=== PATIENT | female | born 1995 | race American Indian/Alaskan Native ===

== ENCOUNTER 2016-08-09 10:43 | Emergency (ER) | payer MEDICAID ==
[2016-08-09 11:25] VITALS: BP 120/80
[2016-08-09] MEDS ORDERED: TYLENOL PO ONE (12:21)
--- NOTE | 2016-08-09 12:23 | Emergency Department Report ---
- General Chief complaint: Skin/Abscess/Foreign Body Stated complaint: POSS INFECTED NIPPLES Time Seen by Provider: 08/09/16 12:17 Source: patient Mode of arrival: Ambulatory Limitations: No Limitations - History of Present Illness Initial comments: 21-year-old patient comes in today for complaint of possible infection of her right nipple. Patient sees piercings to her nipples 8 days ago. Now she is having swelling and some mild discharge and pain in her right nipple. Patient reports she has been placing warm compresses and getting in the shower. She reports that it does drain which she is in the shower. She takes ibuprofen but is starting to make her stomach hurt. She denies any problems or concerns at this time no fever no chills no nausea no vomiting. - Related Data Previous Rx's Medication Instructions Recorded Last Taken Type Doxycycline Monohydrate 100 mg PO BID #28 capsule 07/31/15 Unknown Rx [Doxycycline Monohydrate CAP] metroNIDAZOLE [Flagyl] 500 mg PO Q12HR #14 tab 07/31/15 Unknown Rx Ibuprofen [Motrin 400 MG tab] 400 mg PO Q8H PRN #30 tablet 08/18/15 Unknown Rx Fluconazole [Diflucan] 150 mg PO QDAY #2 bottle 06/01/16 Unknown Rx metroNIDAZOLE [Flagyl] 500 mg PO Q12HR #14 tab 06/01/16 Unknown Rx Acetaminophen/Codeine 1 tab PO Q6H PRN #15 tab 08/09/16 Unknown Rx [Acetaminophen-Codeine #3 TAB] Cephalexin [Keflex] 250 mg PO Q6HR #20 capsule 08/09/16 Unknown Rx Allergies Allergy/AdvReac Type Severity Reaction Status Date / Time No Known Allergies Allergy Unverified 07/31/15 10:16 Abscess Boil HPI - HPI Chief Complaint: Skin/Abscess/Foreign Body Stated Complaint: POSS INFECTED NIPPLES Time Seen by Provider: 08/09/16 12:17 Home Medications: Previous Rx's Medication Instructions Recorded Last Taken Type Doxycycline Monohydrate 100 mg PO BID #28 capsule 07/31/15 Unknown Rx [Doxycycline Monohydrate CAP] metroNIDAZOLE [Flagyl] 500 mg PO Q12HR #14 tab 07/31/15 Unknown Rx Ibuprofen [Motrin 400 MG tab] 400 mg PO Q8H PRN #30 tablet 08/18/15 Unknown Rx Fluconazole [Diflucan] 150 mg PO QDAY #2 bottle 06/01/16 Unknown Rx metroNIDAZOLE [Flagyl] 500 mg PO Q12HR #14 tab 06/01/16 Unknown Rx Acetaminophen/Codeine 1 tab PO Q6H PRN #15 tab 08/09/16 Unknown Rx [Acetaminophen-Codeine #3 TAB] Cephalexin [Keflex] 250 mg PO Q6HR #20 capsule 08/09/16 Unknown Rx Allergies/Adverse Reactions: Allergies Allergy/AdvReac Type Severity Reaction Status Date / Time No Known Allergies Allergy Unverified 07/31/15 10:16 ED Review of Systems ROS: Stated complaint: POSS INFECTED NIPPLES Other details as noted in HPI Constitutional: no symptoms reported Skin: other (right nipple pain and discharge) ED Past Medical Hx - Past Medical History Additional medical history: scolosis. 3 cysts on right arm - Surgical History Additional Surgical History: x 1 - Social History Smoking Status: Current Every Day Smoker Substance Use Type: Marijuana - Medications Home Medications: Home Medications Medication Instructions Recorded Confirmed Last Taken Type Doxycycline Monohydrate 100 mg PO BID #28 capsule 07/31/15 Unknown Rx [Doxycycline Monohydrate CAP] metroNIDAZOLE [Flagyl] 500 mg PO Q12HR #14 tab 07/31/15 Unknown Rx Ibuprofen [Motrin 400 MG tab] 400 mg PO Q8H PRN #30 tablet 08/18/15 Unknown Rx Fluconazole [Diflucan] 150 mg PO QDAY #2 bottle 06/01/16 Unknown Rx metroNIDAZOLE [Flagyl] 500 mg PO Q12HR #14 tab 06/01/16 Unknown Rx Acetaminophen/Codeine 1 tab PO Q6H PRN #15 tab 08/09/16 Unknown Rx [Acetaminophen-Codeine #3 TAB] Cephalexin [Keflex] 250 mg PO Q6HR #20 capsule 08/09/16 Unknown Rx ED Physical Exam - General Limitations: No Limitations General appearance: alert, in no apparent distress - Neurological Exam Neurological exam: Present: alert, oriented X3 - Psychiatric Psychiatric exam: Present: normal affect, normal mood - Skin Skin exam: Present: other (right nipple has silver bar piercing the bar more midline of the right breast there is some mild drainage. Does not appear to be purulent that not to be very erythematous mild tenderness to palpate) ED Course Vital Signs 08/09/16 11:23 Temperature 98.4 F Pulse Rate 72 Respiratory 16 Rate Blood Pressure 120/80 O2 Sat by Pulse 99 Oximetry ED Medical Decision Making - Medical Decision Making Patient's been evaluated by this provider fast track. There appears to be a mild cellulitis of the right nipple. We will cover patient with antibiotics and have her follow up primary care provider. We will give Tylenol for pain management at this time. We recommended patient to ED warm compresses. In the shower cleaning the bar with alcohol 4-5 times a day as well as turned them. Patient verbalized understanding. Critical care attestation.: If time is entered above; I have spent that time in minutes in the direct care of this critically ill patient, excluding procedure time. ED Disposition Clinical Impression: Cellulitis of skin Disposition: DISCHARGED TO HOME OR SELFCARE Is pt being admited?: No Does the pt Need Aspirin: No Condition: Stable Instructions: Cellulitis (ED) Additional Instructions: Complete all antibiotics as prescribed. Use the Tylenol 3 for breakthrough pain he can use [id number] ibuprofen please eat before you take it. Follow-up with her primary care provider for further evaluation and follow-up be sure that the cellulitis is improving. If the area becomes more swollen and more redness discharge is yellowish and greenish to return to the emergency room to be reevaluated. Prescriptions: Acetaminophen/Codeine [Acetaminophen-Codeine #3 TAB] 1 tab PO Q6H PRN #15 tab PRN Reason: Pain Cephalexin [Keflex] 250 mg PO Q6HR #20 capsule Referrals: PRIMARY CARE, [Primary Care Provider] - 3-5 Days [facility] [Outside] - 3-5 Days Forms: Work/School Release Form(ED)
== END 2016-08-09 12:41 | disposition home or self-care (01) ==
LOC: ED 10:43
DX: N61.0 Mastitis without abscess (principal); F12.10 Cannabis abuse, uncomplicated; F17.200 Nicotine dependence, unspecified, uncomplicated
CPT/HCPCS: 99282

== ENCOUNTER 2016-11-02 12:55 | Emergency (ER) | payer SELFPAY ==
[2016-11-02 13:54] VITALS: BP 115/83
[2016-11-02] MEDS ORDERED: NORCO 5/325 PO ONE (16:19)
[2016-11-02] MEDS ORDERED: XYLOCAINE 1% MPF 5 mL INFILTRATI ONE (16:19)
[2016-11-02] MEDS ORDERED: ZOFRAN ODT PO ONE (16:19)
[2016-11-02] MEDS ORDERED: BOOSTRIX IM ONE (16:19)
--- NOTE | 2016-11-02 16:33 | Emergency Department Report ---
ED General Adult HPI - General Chief complaint: Urogenital-Female Stated complaint: BREAST PAIN Time Seen by Provider: 11/02/16 16:02 Source: patient Mode of arrival: Ambulatory Limitations: No Limitations - History of Present Illness Initial comments: PT states she had both nipples pierced 4 months ago. PT states her R nipple ring has been imbedded for 1 month. PT states she can not take her L nipple ring out because the balls are stuck. PT states she has noticed some clear fluid and some pus from her left nipple. MD Complaint: fb Onset/Timin -: week(s) Location: chest (alvaro nipples ) Radiation: non-radiation Severity scale (0 -10): 4 Consistency: constant Improves with: none Associated Symptoms: denies: fever/chills, nausea/vomiting Treatments Prior to Arrival: none - Related Data Previous Rx's Medication Instructions Recorded Last Taken Type Acetaminophen/Codeine [Tylenol #3] 1 tab PO Q6H PRN #12 tab 11/02/16 Unknown Rx Clindamycin [Clindamycin CAP] 300 mg PO Q8H #30 cap 11/02/16 Unknown Rx Allergies Allergy/AdvReac Type Severity Reaction Status Date / Time No Known Allergies Allergy Unverified 07/31/15 10:16 ED Review of Systems ROS: Stated complaint: BREAST PAIN Other details as noted in HPI Comment: All other systems reviewed and negative Constitutional: denies: chills, fever, malaise Gastrointestinal: denies: nausea, vomiting Skin: denies: rash, change in color ED Past Medical Hx - Past Medical History Previous Medical History?: Yes Additional medical history: scolosis. 3 cysts on right arm, Cyst on ovaries - Surgical History Past Surgical History?: Yes Additional Surgical History: x 1 - Social History Smoking Status: Current Every Day Smoker Substance Use Type: Alcohol, Marijuana - Medications Home Medications: Home Medications Medication Instructions Recorded Confirmed Last Taken Type Acetaminophen/Codeine [Tylenol #3] 1 tab PO Q6H PRN #12 tab 11/02/16 Unknown Rx Clindamycin [Clindamycin CAP] 300 mg PO Q8H #30 cap 11/02/16 Unknown Rx ED Physical Exam - General Limitations: No Limitations General appearance: alert, in no apparent distress - Head Head exam: Present: atraumatic, normocephalic - Eye Eye exam: Present: normal appearance. Absent: conjunctival injection - ENT ENT exam: Present: normal exam, mucous membranes moist, normal external ear exam - Neck Neck exam: Present: normal inspection, full ROM. Absent: lymphadenopathy - Respiratory Respiratory exam: Present: normal lung sounds bilaterally. Absent: respiratory distress - Cardiovascular Cardiovascular Exam: Present: regular rate, normal rhythm, normal heart sounds - Extremities Exam Extremities exam: Present: normal inspection, full ROM - Back Exam Back exam: Present: normal inspection, full ROM - Neurological Exam Neurological exam: Present: alert, oriented X3, normal gait - Psychiatric Psychiatric exam: Present: normal affect, normal mood - Skin Skin exam: Present: warm, dry, intact, other (L nipple with piercing, R nipple ring imbedded ) ED Course Vital Signs 11/02/16 13:50 Temperature 98.4 F Pulse Rate 68 Blood Pressure 115/83 O2 Sat by Pulse 100 Oximetry - Reevaluation(s) Reevaluation #1: 11/02/16 16:34 PT gives verbal consent to remove both nipple rings Reevaluation #2: 11/02/16 17:38 PT tolerated removal of L nipple ring well. Unable to remove R nipple ring. PT aware she will need to call her gas brazer in the am and she may need breast surgeon referral. PT verbalizes understanding. - Procedure Description Procedures done: L nipple ring grasped with hemostats. ball removed from L side or ring. Ring removed, + clear drainage noted to site. R nipple cleansed with betadine. + purulant drainage. 0.5ml lidocaine 1% used at nipple piercing site, 11 blade used to enlarge the opening. attempted to back out retained piercing. piercing not able to be removed. - Pulse Oximetry Interpretation Digit-Finger Initial Pulse Oximetry Readin Actions Taken: none ED Medical Decision Making - Differential Diagnosis fb, cellulitis Critical care attestation.: If time is entered above; I have spent that time in minutes in the direct care of this critically ill patient, excluding procedure time. ED Disposition Clinical Impression: Foreign body (FB) in soft tissue, Need for Tdap vaccination Disposition: DISCHARGED TO HOME OR SELFCARE Is pt being admited?: No Does the pt Need Aspirin: No Condition: Stable Instructions: Soft Tissue Foreign Body (ED) Additional Instructions: follow up with your [facility]ED[facility] MANAGER office tomorrow Return to the ED if swelling, redness, drainage, fever, chills or concerns No driving or ETOH after Tylenol #3 Prescriptions: Acetaminophen/Codeine [Tylenol #3] 1 tab PO Q6H PRN #12 tab PRN Reason: Pain , Severe (7-10) Clindamycin [Clindamycin CAP] 300 mg PO Q8H #30 cap Referrals: [facility] [Provider Group] - 3-5 Days [facility] [Primary Care Provider] - 3-5 Days Time of Disposition: 17:39
== END 2016-11-02 17:58 | disposition home or self-care (01) ==
LOC: ED 12:55
DX: S20.152A Superficial foreign body of breast, left breast, initial encounter (principal); S20.151A Superficial foreign body of breast, right breast, initial encounter; F17.200 Nicotine dependence, unspecified, uncomplicated; F12.10 Cannabis abuse, uncomplicated; W45.8XXA Other foreign body or object entering through skin, initial encounter; Y93.89 Activity, other specified; Y92.89 Other specified places as the place of occurrence of the external cause; Y99.8 Other external cause status
CPT/HCPCS: 90471; 90715; Q0162

== ENCOUNTER 2017-05-03 09:42 | Emergency (ER) | payer OTHER ==
[2017-05-03] MEDS ORDERED: XYLOCAINE 1% 20 mL INFILTRATI ONE ×2 (09:55→11:49)
[2017-05-03] MEDS ORDERED: NORCO 5/325 PO ONE (11:47)
[2017-05-03 12:16] VITALS: BP 136/70
[2017-05-03] MEDS ORDERED: TRIPLE ANTIBIOTIC TP ONE ×2 (12:46→12:50)
--- NOTE | 2017-05-03 13:16 | Emergency Department Report ---
ED General Adult HPI - General Chief complaint: Skin/Abscess/Foreign Body Stated complaint: NIPPLE INFECTION X 3 WEEKS Time Seen by Provider: 05/03/17 09:52 Source: patient Mode of arrival: Ambulatory Limitations: No Limitations - History of Present Illness Initial comments: Patient is a 22 y/o female who presents with right breast pain x 6 months. Patient was seen here 4 months ago for same reason with an infection. Patient states that her nipple ring is stuck inside her skin and she cannot take it out. Patient denies any drainage, swelling or rash. Patient states that when she came here 5 months ago she was put on clindamycin but the provider could not pull out the ring. Patient denies any fever or chills. Patient states that the nipple was placed in about 1 year ago. MD Complaint: breast pain Onset/Timin -: month(s) Location: chest (right breast) Severity scale (0 -10): 8 Quality: aching Consistency: intermittent Improves with: none Worsens with: movement Treatments Prior to Arrival: none - Related Data Previous Rx's Medication Instructions Recorded Last Taken Type Acetaminophen/Codeine [Tylenol #3] 1 tab PO Q6H PRN #12 tab 11/02/16 Unknown Rx Clindamycin [Clindamycin CAP] 300 mg PO Q8H #30 cap 11/02/16 Unknown Rx Acetaminophen/Codeine [Tylenol 1 tab PO Q6H PRN #15 tab 05/03/17 Unknown Rx /Codeine # 3 tab] Cephalexin [Keflex] 500 mg PO Q12HR #14 cap 05/03/17 Unknown Rx Allergies Allergy/AdvReac Type Severity Reaction Status Date / Time No Known Allergies Allergy Unverified 07/31/15 10:16 ED Review of Systems ROS: Stated complaint: NIPPLE INFECTION X 3 WEEKS Other details as noted in HPI Comment: All other systems reviewed and negative Constitutional: no symptoms reported Respiratory: no symptoms reported Gastrointestinal: denies: abdominal pain, nausea, vomiting Musculoskeletal: denies: back pain Skin: other (nipple ring stuck under skin) Neurological: denies: headache ED Past Medical Hx - Past Medical History Previous Medical History?: No Additional medical history: scolosis. 3 cysts on right arm, Cyst on ovaries - Surgical History Past Surgical History?: Yes Additional Surgical History: x 1 - Social History Smoking Status: Current Every Day Smoker Substance Use Type: Alcohol - Medications Home Medications: Home Medications Medication Instructions Recorded Confirmed Last Taken Type Acetaminophen/Codeine [Tylenol #3] 1 tab PO Q6H PRN #12 tab 11/02/16 Unknown Rx Clindamycin [Clindamycin CAP] 300 mg PO Q8H #30 cap 11/02/16 Unknown Rx Acetaminophen/Codeine [Tylenol 1 tab PO Q6H PRN #15 tab 05/03/17 Unknown Rx /Codeine # 3 tab] Cephalexin [Keflex] 500 mg PO Q12HR #14 cap 05/03/17 Unknown Rx ED Physical Exam - General Limitations: No Limitations General appearance: alert, in no apparent distress - Head Head exam: Present: normal inspection - Eye Eye exam: Present: normal appearance - Extremities Exam Extremities exam: Present: normal inspection, full ROM. Absent: tenderness - Back Exam Back exam: Present: normal inspection, full ROM. Absent: tenderness - Neurological Exam Neurological exam: Present: alert, oriented X3 - Skin Skin exam: Present: other (there was a nipple ring in the right nippl with one end exposed and the other end inside the subcutanoes tissue. ) ED Course Vital Signs 05/03/17 09:47 Temperature 98.4 F Pulse Rate 79 Respiratory 16 Rate Blood Pressure 136/70 O2 Sat by Pulse 100 Oximetry - Procedure Description Procedures done: ther right nipple was cleaned with betadine. 1 cm incision was made adjacent to the nipple ring to remove the ring. the subcutanous tissue around the inner ring was scraped off with an 11 blade which freed the nipple ring. the ring was pulled out and there was no attached tissue or skin. - Laceration /Wound Repair Right Breast Wound Location: chest (right breast nipple) Wound Length (cm): 1 Wound's Depth, Shape: superficial Wound Explored: foreign body removed Betadine Prep?: Yes Anesthesia: 1% Lidocaine Volume Anesthetic (ccs): 2 Wound Repaired With: sutures Suture Size/Type: 5:0, proline, nylon Number of Sutures: 2 Layer Closure?: No Progress: 1 cm incision was made to remove the nipple ring. laceration repair was made with 2 prolene suture after the nipple ring was removed. ED Medical Decision Making - Medical Decision Making patient was in NAD, the nipple ring was removed from the right nipple after the area cleaned with betadine, anaesthetized with lidocane. a 1 cm incision was made and the ring was successfully removed. the incision was repaired and patient was prescribed keflex. patient was told to return to the ER in 7 days for suture removal. - Differential Diagnosis foreign body, cellulitis, abscess Critical care attestation.: If time is entered above; I have spent that time in minutes in the direct care of this critically ill patient, excluding procedure time. ED Disposition Clinical Impression: Foreign body of breast, right, superficial Qualifiers: Encounter type: initial encounter Qualified Code(s): S20.151A - Superficial foreign body of breast, right breast, initial encounter Disposition: TO HOME OR SELFCARE Is pt being admited?: No Does the pt Need Aspirin: No Condition: Good Instructions: Suture Care (ED), Laceration (ED) Additional Instructions: take keflex 500mg twice a day for 7 days. Return to the ER in 7 days for suture removal. clean daily with soap and water and apply neosporin. Return to the ER for any signs of infection like swelling, redness, fever or drainage. Prescriptions: Acetaminophen/Codeine [Tylenol /Codeine # 3 tab] 1 tab PO Q6H PRN #15 tab PRN Reason: pain Cephalexin [Keflex] 500 mg PO Q12HR #14 cap Referrals: [facility] [Outside] - 3-5 Days Time of Disposition: 13:16
== END 2017-05-03 13:29 | disposition home or self-care (01) ==
LOC: ED 09:42
DX: S20.151A Superficial foreign body of breast, right breast, initial encounter (principal); F17.200 Nicotine dependence, unspecified, uncomplicated; X58.XXXA Exposure to other specified factors, initial encounter; Y93.9 Activity, unspecified; Y99.9 Unspecified external cause status; Y92.9 Unspecified place or not applicable
CPT/HCPCS: 99282; A6250

== ENCOUNTER 2017-08-14 07:51 | Emergency (ER) | payer SELFPAY ==
[2017-08-14 08:33] VITALS: BP 120/64
[2017-08-14 09:21] LABS: Basophils % (Auto) 0.3 % (0.0-1.8); Eosinophils # (Auto) 0.1 K/mm3 (0.0-0.4); Eosinophils % (Auto) 2.1 % (0.0-4.3); Hematocrit 38.5 % (30.3-42.9); Hemoglobin 12.4 gm/dl (10.1-14.3); Lymphocytes % (Auto) 38.9 % (13.4-35.0); Mean Corpuscular HGB Conc 32 % (30-34); Mean Corpuscular Hemoglobin 26 pg (28-32); Mean Corpuscular Volume 81 fl (79-97); Monocytes # (Auto) 0.6 K/mm3 (0.0-0.8); Monocytes % (Auto) 11.2 % (0.0-7.3); Platelet Count 231 K/mm3 (140-440); Red Blood Count 4.75 M/mm3 (3.65-5.03); Red Cell Distribution Width 13.5 % (13.2-15.2)
[2017-08-14 09:38] LABS: Alanine Aminotransferase 10 units/L (7-56); Albumin 4.1 g/dL (3.9-5); BUN/Creatinine Ratio 14; Blood Urea Nitrogen 7 mg/dL (7-17); Calcium 8.9 mg/dL (8.4-10.2); Hemolysis Index 6; Lipase 23 units/L (13-60)
[2017-08-14 10:23] LABS: Bacteria,Urine 1+ /HPF (Negative); Bilirubin,Urine NEG (Negative); Blood,Urine NEG (Negative); Color,Urine Yellow (Yellow); Mucus,Urine FEW /HPF; Nitrite,Urine NEG (Negative); Protein,Urine <15 mg/dL mg/dL (Negative); Urobilinogen,Urine < 2.0 mg/dL (<2.0)
== END 2017-08-14 22:15 | disposition left against medical advice (07) ==
LOC: ED 07:51
DX: R10.9 Unspecified abdominal pain (principal); Z53.21 Procedure and treatment not carried out due to patient leaving prior to being seen by health care provider
CPT/HCPCS: 36415; 80053; 81001; 83690; 84702; 85025

== ENCOUNTER 2017-08-16 10:50 | Emergency (ER) | payer SELFPAY ==
[2017-08-16 11:28] VITALS: BP 120/37
--- NOTE | 2017-08-16 13:17 | Emergency Department Report ---
ED Recheck HPI - General Chief Complaint: Medical Clearance Stated Complaint: CHECK HCG LEVELS Time Seen by Provider: 08/16/17 12:47 Source: patient, family Mode of arrival: Ambulatory Limitations: No Limitations - History of Present Illness Initial Comments: Patient reports that she was at [facility] on Tuesday which was the . She said she was there because she was having abdominal cramping and and they did ultrasound and lab work on her sheet that she is and they told her to return for repeat hCG level. She denies any abdominal pain. Denies any urinary burning frequency or urgency. Denies any vaginal bleeding or discharge. Denies any back pain. Pain is 0-10. She brought paperwork with her with ultrasound which showed that they were not able to see IUP due to early gestational sac. pole and you'll sac or not seen. No subchorionic hemorrhage is seen. Cervix is closed. She had wet prep, gonorrhea and chlamydia, urinalysis, CMP done. She was given OB physician to follow-up with in Dr. Janeen Fung crossed the patient is here requesting to be referred to [facility] clinic. She was also instructed to exercise pelvic rest. 1 dictated serum hCG on 08/14/2017 was 2679.6. Complaint: other (here for recheck on labs) Initial Visit For: other (abdominal pain and at [facility]) Returns Today for: other (here for recheck hormone) Symptoms Since Prior Visit: no new symptoms Context: planned re-check Associated Symptoms: none Treatments Prior to Arrival: other (told to follow up with [facility]) - Related Data Previous Rx's Medication Instructions Recorded Last Taken Type Acetaminophen/Codeine [Tylenol #3] 1 tab PO Q6H PRN #12 tab 11/02/16 Unknown Rx Clindamycin [Clindamycin CAP] 300 mg PO Q8H #30 cap 11/02/16 Unknown Rx Acetaminophen/Codeine [Tylenol 1 tab PO Q6H PRN #15 tab 05/03/17 Unknown Rx /Codeine # 3 tab] Cephalexin [Keflex] 500 mg PO Q12HR #14 cap 05/03/17 Unknown Rx Allergies Allergy/AdvReac Type Severity Reaction Status Date / Time No Known Allergies Allergy Unverified 07/31/15 10:16 ED Review of Systems ROS: Stated complaint: CHECK HCG LEVELS Other details as noted in HPI Comment: All other systems reviewed and negative Constitutional: no symptoms reported Respiratory: no symptoms reported Cardiovascular: denies: chest pain, palpitations, dyspnea on exertion, edema, syncope, paroxysmal nocturnal dyspnea Gastrointestinal: denies: abdominal pain, nausea, vomiting, diarrhea, constipation, hematemesis, melena, hematochezia Genitourinary: denies: urgency, dysuria, frequency, hematuria, discharge Musculoskeletal: denies: back pain, joint swelling, arthralgia, myalgia Skin: denies: rash Neurological: denies: headache ED Past Medical Hx - Past Medical History Previous Medical History?: Yes Additional medical history: scolosis. 3 cysts on right arm, Cyst on ovaries, Miscarriage - Surgical History Past Surgical History?: Yes Additional Surgical History: x 1 - Family History Family history: no significant - Social History Smoking Status: Never Smoker Substance Use Type: None - Medications Home Medications: Home Medications Medication Instructions Recorded Confirmed Last Taken Type Acetaminophen/Codeine [Tylenol #3] 1 tab PO Q6H PRN #12 tab 11/02/16 Unknown Rx Clindamycin [Clindamycin CAP] 300 mg PO Q8H #30 cap 11/02/16 Unknown Rx Acetaminophen/Codeine [Tylenol 1 tab PO Q6H PRN #15 tab 05/03/17 Unknown Rx /Codeine # 3 tab] Cephalexin [Keflex] 500 mg PO Q12HR #14 cap 05/03/17 Unknown Rx ED Physical Exam - General Limitations: No Limitations General appearance: alert, in no apparent distress - Head Head exam: Present: atraumatic, normocephalic, normal inspection - Eye Eye exam: Present: normal appearance, PERRL, EOMI Pupils: Present: normal accommodation - ENT ENT exam: Present: normal exam, normal orophraynx, mucous membranes moist - Neck Neck exam: Present: normal inspection, full ROM. Absent: tenderness, meningismus, lymphadenopathy, thyromegaly - Respiratory Respiratory exam: Present: normal lung sounds bilaterally. Absent: respiratory distress, chest wall tenderness, accessory muscle use - Cardiovascular Cardiovascular Exam: Present: regular rate, normal rhythm, normal heart sounds. Absent: systolic murmur, diastolic murmur - GI/Abdominal GI/Abdominal exam: Present: soft, normal bowel sounds. Absent: distended, tenderness, guarding, rebound, rigid, organomegaly, mass, bruit, pulsatile mass , hernia - Extremities Exam Extremities exam: Present: normal inspection, full ROM, normal capillary refill , other (no clubbing, cyanosis or edema. +2 pulses all extremities). Absent: tenderness, pedal edema, joint swelling, calf tenderness - Back Exam Back exam: Present: normal inspection, full ROM. Absent: tenderness - Neurological Exam Neurological exam: Present: alert, oriented X3, normal gait - Psychiatric Psychiatric exam: Present: normal affect, normal mood - Skin Skin exam: Present: warm, dry, intact, normal color. Absent: rash ED Course Vital Signs 08/16/17 11:25 Temperature 98.5 F Pulse Rate 86 Respiratory 18 Rate Blood Pressure 120/37 O2 Sat by Pulse 100 Oximetry - Reevaluation(s) Reevaluation #1: 08/16/17 14:02 Patient stable throughout ED course. Serum hCG today is 6179 and serum hCG 2 days ago was 2679.6. Patient is stable ED Recheck MDM - Medical Decision Making ED course: She was seen at [facility] 2 days ago and was told to have serum hCG rechecked today. She said she is requested to be referred to OB/ [facility] even though she was first one 2 days ago. I told her I'll refer her to my [facility] which is the [facility] doctor that some call for today and also some [facility]. Patient and serum quantitative hCG is 61,179 today and on 08/14/2017 it was 2679.6. Her hormone level are increase then and she is asymptomatic. She had ultrasound and multiple lab work to include vaginal cultures done 2 days ago at [place]. I discussed patient her hormone level and gave her a copy of the lab work. I discussed with her that she needs to call [facility] and schedule an appointment for care. I also discussed with her that she needs to take vitamin. LMP 06/28/2017. He was sinus on the discharge instruction and treatment plan and discharged home with her family from ED in stable condition Critical care attestation.: If time is entered above; I have spent that time in minutes in the direct care of this critically ill patient, excluding procedure time. ED Disposition Clinical Impression: Encounter for laboratory test, at early stage Disposition: -01 TO HOME OR SELFCARE Is pt being admited?: No Does the pt Need Aspirin: No Condition: Stable Instructions: (ED) Additional Instructions: The schedule appointment with [facility] that you were referred to. Call tomorrow to schedule an appointment If you develop abdominal pain and/or vaginal bleeding, please return to the emergency room. Your hormone level is increased and which is normal in . Start taking vitamin Increase her fluid intake Referrals: CARLY HAYNES MD [Staff Physician] - 2-3 Days (My [facility]) [facility] [Outside] - 2-3 Days Forms: Work/School Release Form(ED)
== END 2017-08-16 14:26 | disposition home or self-care (01) ==
LOC: ED 10:50
DX: O26.891 Other specified pregnancy related conditions, first trimester (principal); Z3A.01 Less than 8 weeks gestation of pregnancy
CPT/HCPCS: 36415; 84702; 99283

== ENCOUNTER 2017-11-20 10:01 | Emergency (ER) | payer MEDICAID ==
[2017-11-20 10:13] VITALS: BP 111/51
--- NOTE | 2017-11-20 10:45 | Emergency Department Report ---
ED Headache HPI - General Chief Complaint: Headache Stated Complaint: HEAD/RIGHT SIDE PAIN Time Seen by Provider: 11/20/17 10:23 Source: patient - History of Present Illness Initial Comments: Patient is 22 years old female, 18 weeks . Patient presented to the ER complaining of headache for the last 5 days associated with sinus pressure and nasal discharge especially in the morning. Patient denied any fever, nausea vomiting. Patient stated that her baby is moving well was no Demetrio denied any vaginal bleeding or vaginal discharge. Patient stated that her blood pressure is well-controlled in this . Timing/Duration: 1 week Quality: mild Head Injury Location: frontal Recent Head Trauma: no recent headache/trauma Modifying Factors: worse with: cold therapy, exposure to light, immobilization, medication, movement, rest, other Associated Symptoms: nasal congestion, nasal drainage, sinus infection. denies : denies symptoms, confusion, fatigue, facial pain, fever/chills, flushing, loss of consciousness, nausea/vomiting, numbness in legs/feet, rash, seizures, stiff neck, vision changes, weakness, other Allergies/Adverse Reactions: Allergies No Known Allergies Allergy (Unverified 07/31/15 10:16) Home Medications: Ambulatory Orders Acetaminophen/Codeine [Tylenol #3] 1 tab PO Q6H PRN #12 tab 11/02/16 Clindamycin [Clindamycin CAP] 300 mg PO Q8H #30 cap 11/02/16 Acetaminophen/Codeine [Tylenol /Codeine # 3 tab] 1 tab PO Q6H PRN #15 tab Cephalexin [Keflex] 500 mg PO Q12HR #14 cap 05/03/17 ED Review of Systems ROS: Stated complaint: HEAD/RIGHT SIDE PAIN Other details as noted in HPI Comment: All other systems reviewed and negative Constitutional: denies: chills, fever Respiratory: denies: cough, orthopnea, shortness of breath, SOB with exertion, SOB at rest Cardiovascular: denies: chest pain, palpitations Gastrointestinal: denies: abdominal pain, nausea, vomiting ED Past Medical Hx - Past Medical History Previous Medical History?: Yes Additional medical history: scolosis. 3 cysts on right arm, Cyst on ovaries, Miscarriage - Surgical History Past Surgical History?: Yes Additional Surgical History: x 1 - Social History Smoking Status: Former Smoker Substance Use Type: Alcohol, Prescribed - Medications Home Medications: Home Medications Medication Instructions Recorded Confirmed Last Taken Type Acetaminophen/Codeine [Tylenol #3] 1 tab PO Q6H PRN #12 tab 11/02/16 Unknown Rx Clindamycin [Clindamycin CAP] 300 mg PO Q8H #30 cap 11/02/16 Unknown Rx Acetaminophen/Codeine [Tylenol 1 tab PO Q6H PRN #15 tab 05/03/17 Unknown Rx /Codeine # 3 tab] Cephalexin [Keflex] 500 mg PO Q12HR #14 cap 05/03/17 Unknown Rx ED Physical Exam - General Limitations: No Limitations General appearance: alert, in no apparent distress, appears intoxicated - Head Head exam: Present: atraumatic, normocephalic, normal inspection - ENT ENT exam: Present: normal exam, normal orophraynx, mucous membranes dry, other ( ethmoid and maxillary sinus tenderness) - Neck Neck exam: Present: normal inspection, full ROM. Absent: tenderness, meningismus, lymphadenopathy, thyromegaly - Respiratory Respiratory exam: Present: normal lung sounds bilaterally. Absent: respiratory distress, wheezes, rales, rhonchi, stridor, chest wall tenderness, accessory muscle use, decreased breath sounds, prolonged expiratory - Cardiovascular Cardiovascular Exam: Present: regular rate, normal rhythm, normal heart sounds - GI/Abdominal GI/Abdominal exam: Present: soft, normal bowel sounds. Absent: distended, tenderness, guarding, rebound, rigid, organomegaly, mass, bruit, pulsatile mass , hernia - Extremities Exam Extremities exam: Present: normal inspection, full ROM, normal capillary refill - Back Exam Back exam: Present: normal inspection, full ROM. Absent: tenderness, CVA tenderness (R) - Neurological Exam Neurological exam: Present: alert, CN II-XII intact. Absent: altered, oriented X3, normal gait - Skin Skin exam: Present: warm, intact, normal color ED Course Vital Signs 11/20/17 10:08 Temperature 98.9 F Pulse Rate 87 Respiratory 16 Rate Blood Pressure 111/51 O2 Sat by Pulse 100 Oximetry Critical care attestation.: If time is entered above; I have spent that time in minutes in the direct care of this critically ill patient, excluding procedure time. ED Disposition Clinical Impression: Headache, Sinusitis Disposition: - TO HOME OR SELFCARE Is pt being admited?: No Condition: Stable Instructions: Sinusitis (ED), Acute Headache (ED)
== END 2017-11-20 10:49 | disposition home or self-care (01) ==
LOC: ED 10:01
DX: O99.512 Diseases of the respiratory system complicating pregnancy, second trimester (principal); J01.90 Acute sinusitis, unspecified; Z3A.18 18 weeks gestation of pregnancy; Z87.891 Personal history of nicotine dependence
CPT/HCPCS: 99282

== ENCOUNTER 2017-12-13 16:30 | Outpatient (CLI) | payer MEDICAID ==
[2017-12-13 17:28] VITALS: BP 116/60
[2017-12-13] MEDS ORDERED: LACTATED RINGERS 500 ML IV ONE (17:50)
[2017-12-13 18:28] LABS: Bilirubin,Urine NEG (Negative); Blood,Urine NEG (Negative); Color,Urine Yellow (Yellow); Mucus,Urine FEW /HPF; Protein,Urine <15 mg/dL mg/dL (Negative); Urobilinogen,Urine < 2.0 mg/dL (<2.0); WBC,Urine < 1.0 /HPF (0.0-6.0)
== END 2017-12-13 19:15 | disposition home or self-care (01) ==
LOC: TRG 16:30
PROVIDERS: ATTEND Obstetrics & Gynecology
DX: O26.892 Other specified pregnancy related conditions, second trimester (principal); Z3A.22 22 weeks gestation of pregnancy
CPT/HCPCS: 59025; 81001

== ENCOUNTER 2018-08-08 19:01 | Emergency (ER) | payer MEDICAID, OTHER ==
[2018-08-08 19:21] VITALS: BP 113/77
[2018-08-08 19:58] LABS: Basophils % (Auto) 0.2 % (0.0-1.8); Eosinophils # (Auto) 0.1 K/mm3 (0.0-0.4); Eosinophils % (Auto) 1.9 % (0.0-4.3); Hematocrit 38.8 % (30.3-42.9); Hemoglobin 12.3 gm/dl (10.1-14.3); Lymphocytes % (Auto) 39.5 % (13.4-35.0); Mean Corpuscular HGB Conc 32 % (30-34); Mean Corpuscular Volume 77 fl (79-97); Monocytes # (Auto) 0.6 K/mm3 (0.0-0.8); Monocytes % (Auto) 11.2 % (0.0-7.3); Platelet Count 306 K/mm3 (140-440); Red Blood Count 5.06 M/mm3 (3.65-5.03); Red Cell Distribution Width 15.8 % (13.2-15.2)
[2018-08-08 20:16] LABS: BUN/Creatinine Ratio 13; Blood Urea Nitrogen 8 mg/dL (7-17); Calcium 8.8 mg/dL (8.4-10.2)
[2018-08-08 20:17] LABS: Alanine Aminotransferase 20 units/L (7-56); Albumin 4.4 g/dL (3.9-5); Hemolysis Index 12
[2018-08-08 20:22] LABS: Bilirubin,Urine NEG (Negative); Blood,Urine LG (Negative); Color,Urine Yellow (Yellow); HCG Qualitative,Urine Negative (Negative); Mucus,Urine FEW /HPF; Protein,Urine <15 mg/dL mg/dL (Negative); RBC,Urine < 1.0 /HPF (0.0-6.0); Urobilinogen,Urine < 2.0 mg/dL (<2.0)
--- NOTE | 2018-08-08 20:40 | Emergency Department Report ---
ED Female HPI - General Chief complaint: Abdominal Pain Stated complaint: SIDE PAIN/CANT URINATE Time Seen by Provider: 08/08/18 19:46 Source: patient Mode of arrival: Ambulatory Limitations: No Limitations - History of Present Illness Initial comments: 23 0 -[place] female comes in complaining of right upper abdominal pain that's been going on since April. Patient reports since Tuesday more frequently. Patient also complains of urinary frequency and urinary urgency. Patient reports that her last menstrual period to start it was 04/10/2018 and has not stopped since she delivered her baby in March. Patient put she was seen by [facility] and was placed on Deprol after having a child. Patient reports that her Deprol follow-up is due now but she does not want to have Depo again. Patient reports that she is not considering any control prevention. Patient reports that she has not really sexually active. Patient reports she is not sure if she is having any vaginal discharge since she has been bleeding since March. Patient has only taken Tylenol if his ibuprofen gonsales her stomach. Patient denies any past medical history reports he takes no medications on a daily basis and has no known drug allergies. Patient does have a history of right ovarian cyst. Patient does not have a primary care provider or [facility] provider. -: month(s) (4) Location: other Severity: moderate Severity scale (0 -10): 6 (right side) Quality: aching Consistency: intermittent Improves with: none Worsens with: none Are you Now?: No Last Menstrual Period: 04/10/18 EDC: 01/15/19 Associated Symptoms: vaginal bleeding, abdominal pain - Related Data Sexually active: No Previous Rx's Medication Instructions Recorded Last Taken Type Acetaminophen/Codeine [Tylenol #3] 1 tab PO Q6H PRN #12 tab 11/02/16 Unknown Rx Clindamycin [Clindamycin CAP] 300 mg PO Q8H #30 cap 11/02/16 Unknown Rx Acetaminophen/Codeine [Tylenol 1 tab PO Q6H PRN #15 tab 05/03/17 Unknown Rx /Codeine # 3 tab] cephALEXin [Keflex] 500 mg PO Q12HR #14 cap 05/03/17 Unknown Rx Amoxicillin [Amoxicillin TAB] 875 mg PO BID #14 tablet 11/20/17 Unknown Rx Fluticasone [Flonase] 1 spray NS QDAY #1 bottle 11/20/17 Unknown Rx medroxyPROGESTERone ACETATE 10 mg PO QDAY #10 tablet 08/08/18 Unknown Rx [Provera] metroNIDAZOLE [Flagyl] 500 mg PO Q8HR #21 tab 08/08/18 Unknown Rx Allergies Allergy/AdvReac Type Severity Reaction Status Date / Time No Known Allergies Allergy Unverified 07/31/15 10:16 ED Review of Systems ROS: Stated complaint: SIDE PAIN/CANT URINATE Other details as noted in HPI Comment: All other systems reviewed and negative Gastrointestinal: abdominal pain (intermittent right sided abdominal pain) Genitourinary: urgency, frequency, other (vaginal bleeding) Musculoskeletal: denies: back pain, joint swelling, arthralgia Skin: denies: rash, lesions Neurological: denies: headache, weakness, paresthesias Psychiatric: denies: anxiety, depression Hematological/Lymphatic: denies: easy bleeding, easy bruising ED Past Medical Hx - Past Medical History Previous Medical History?: Yes Hx Hypertension: No Hx Diabetes: No Hx Deep Vein Thrombosis: No Hx Renal Disease: No Hx Sickle Cell Disease: No Hx Seizures: No Hx Asthma: No Hx HIV: No Additional medical history: scoliosis. 3 cysts on right arm, Cyst on ovaries, Miscarriage - Surgical History Past Surgical History?: Yes Additional Surgical History: x 1 - Social History Smoking Status: Current Every Day Smoker Substance Use Type: None - Medications Home Medications: Home Medications Medication Instructions Recorded Confirmed Last Taken Type Acetaminophen/Codeine [Tylenol #3] 1 tab PO Q6H PRN #12 tab 11/02/16 Unknown Rx Clindamycin [Clindamycin CAP] 300 mg PO Q8H #30 cap 11/02/16 Unknown Rx Acetaminophen/Codeine [Tylenol 1 tab PO Q6H PRN #15 tab 05/03/17 Unknown Rx /Codeine # 3 tab] cephALEXin [Keflex] 500 mg PO Q12HR #14 cap 05/03/17 Unknown Rx Amoxicillin [Amoxicillin TAB] 875 mg PO BID #14 tablet 11/20/17 Unknown Rx Fluticasone [Flonase] 1 spray NS QDAY #1 bottle 11/20/17 Unknown Rx medroxyPROGESTERone ACETATE 10 mg PO QDAY #10 tablet 08/08/18 Unknown Rx [Provera] metroNIDAZOLE [Flagyl] 500 mg PO Q8HR #21 tab 08/08/18 Unknown Rx ED Physical Exam - General Limitations: No Limitations General appearance: alert, in no apparent distress - Head Head exam: Present: atraumatic, normocephalic - Eye Eye exam: Present: EOMI - ENT ENT exam: Present: mucous membranes moist - Neck Neck exam: Present: normal inspection - Respiratory Respiratory exam: Present: normal lung sounds bilaterally. Absent: respiratory distress - Cardiovascular Cardiovascular Exam: Present: regular rate, normal rhythm. Absent: systolic murmur, diastolic murmur, rubs, gallop - GI/Abdominal GI/Abdominal exam: Present: soft, normal bowel sounds. Absent: distended, tenderness - External exam: Present: normal external exam Speculum exam: Present: vaginal bleeding Bi-manual exam: Present: normal bi-manual exam - Extremities Exam Extremities exam: Present: full ROM - Back Exam Back exam: Present: normal inspection - Neurological Exam Neurological exam: Present: alert, oriented X3 - Psychiatric Psychiatric exam: Present: normal affect, normal mood - Skin Skin exam: Present: warm, dry, intact, normal color. Absent: rash ED Course Vital Signs 08/08/18 19:17 Temperature 98.9 F Pulse Rate 86 Respiratory 18 Rate Blood Pressure 113/77 O2 Sat by Pulse 98 Oximetry ED Medical Decision Making - Lab Data Result diagrams: 08/08/18 19:39 08/08/18 19:39 - Medical Decision Making Patient has been evaluated by this provider in fast track. Patient has no abdominal pain at this moment no tenderness on examination Patient complains of urinary frequency and urgency but urinalysis is negative for any infections. He got a chlamydia and gonorrhea test was treated her presumptively for chlamydia. Patient be treated for bacterial vaginosis with Flagyl and Provera for menometrorrhagia. Critical care attestation.: If time is entered above; I have spent that time in minutes in the direct care of this critically ill patient, excluding procedure time. ED Disposition Clinical Impression: Bacterial vaginosis, Menometrorrhagia Disposition: - TO HOME OR SELFCARE Is pt being admited?: No Does the pt Need Aspirin: No Condition: Stable Instructions: Abdominal Pain (ED), Bacterial Vaginosis (ED), Menorrhagia (ED) Additional Instructions: Please take Provera once a day for 10 days. It's very important for you to follow up with [facility] I have listed several below for your convenience. Please complete her antibiotics for your bacterial vaginosis infection. Please incre ase her water intake. You can take Tylenol for pain. Prescriptions: medroxyPROGESTERone ACETATE [Provera] 10 mg PO QDAY #10 tablet metroNIDAZOLE [Flagyl] 500 mg PO Q8HR #21 tab Referrals: EARNEST MAYEN MD [Primary Care Provider] - 3-5 Days Forms: STI Treatment and Prevention, Work/School Release Form(ED)
[2018-08-08] MEDS ORDERED: ZITHROMAX PO ONE (21:49)
== END 2018-08-08 22:33 | disposition home or self-care (01) ==
LOC: ED 19:01
DX: N76.0 Acute vaginitis (principal); N92.1 Excessive and frequent menstruation with irregular cycle; F17.200 Nicotine dependence, unspecified, uncomplicated
CPT/HCPCS: 36415; 80053; 81001; 81025; 85025; 87210; 87591; 99284

== ENCOUNTER 2019-02-06 09:01 | Emergency (ER) | payer SELFPAY ==
[2019-02-06 09:25] VITALS: BP 112/55
--- NOTE | 2019-02-06 10:16 | Emergency Department Report ---
ED ENT HPI - General Chief complaint: Earache Stated complaint: EAR PAIN Time Seen by Provider: 02/06/19 09:59 Source: patient Mode of arrival: Ambulatory Limitations: No Limitations - History of Present Illness Initial comments: This is a 23-year-old female presents complaining of right side greater than left ear. Sometimes 2-3 days. Patient states be canal she had some dental pain which took some Tylenol without some Tylenol it resolved. Patient denies any for the ear or trauma to the ears. She denies hearing loss. He describes been a throbbing aching in nature spell and bilateral ears. She denies discharge from the ear, fever, nausea vomiting or any other problems. MD complaint: ear pain - Related Data Previous Rx's Medication Instructions Recorded Last Taken Type Acetaminophen/Codeine [Tylenol #3] 1 tab PO Q6H PRN #12 tab 11/02/16 Unknown Rx Clindamycin [Clindamycin CAP] 300 mg PO Q8H #30 cap 11/02/16 Unknown Rx cephALEXin [Keflex] 500 mg PO Q12HR #14 cap 05/03/17 Unknown Rx Fluticasone [Flonase] 1 spray NS QDAY #1 bottle 11/20/17 Unknown Rx medroxyPROGESTERone ACETATE 10 mg PO QDAY #10 tablet 08/08/18 Unknown Rx [Provera] metroNIDAZOLE [Flagyl] 500 mg PO Q8HR #21 tab 08/08/18 Unknown Rx Acetaminophen/Codeine [Tylenol 1 tab PO Q6H PRN #10 tab 02/06/19 Unknown Rx /Codeine # 3 tab] Amoxicillin [Amoxicillin TAB] 875 mg PO BID #14 tablet 02/06/19 Unknown Rx Allergies Allergy/AdvReac Type Severity Reaction Status Date / Time No Known Allergies Allergy Verified 02/06/19 09:12 ED Dental HPI - General Chief complaint: Earache Stated complaint: EAR PAIN Time Seen by Provider: 02/06/19 09:59 Source: patient Mode of arrival: Ambulatory Limitations: No Limitations - Related Data Previous Rx's Medication Instructions Recorded Last Taken Type Acetaminophen/Codeine [Tylenol #3] 1 tab PO Q6H PRN #12 tab 11/02/16 Unknown Rx Clindamycin [Clindamycin CAP] 300 mg PO Q8H #30 cap 11/02/16 Unknown Rx cephALEXin [Keflex] 500 mg PO Q12HR #14 cap 05/03/17 Unknown Rx Fluticasone [Flonase] 1 spray NS QDAY #1 bottle 11/20/17 Unknown Rx medroxyPROGESTERone ACETATE 10 mg PO QDAY #10 tablet 08/08/18 Unknown Rx [Provera] metroNIDAZOLE [Flagyl] 500 mg PO Q8HR #21 tab 08/08/18 Unknown Rx Acetaminophen/Codeine [Tylenol 1 tab PO Q6H PRN #10 tab 02/06/19 Unknown Rx /Codeine # 3 tab] Amoxicillin [Amoxicillin TAB] 875 mg PO BID #14 tablet 02/06/19 Unknown Rx Allergies Allergy/AdvReac Type Severity Reaction Status Date / Time No Known Allergies Allergy Verified 02/06/19 09:12 ED Review of Systems ROS: Stated complaint: EAR PAIN Other details as noted in HPI Comment: All other systems reviewed and negative ED Past Medical Hx - Past Medical History Hx Hypertension: No Hx Diabetes: No Hx Deep Vein Thrombosis: No Hx Renal Disease: No Hx Sickle Cell Disease: No Hx Seizures: No Hx Asthma: No Hx HIV: No Additional medical history: scoliosis. 3 cysts on right arm, Cyst on ovaries, Miscarriage - Surgical History Additional Surgical History: x 1 - Social History Smoking Status: Current Every Day Smoker Substance Use Type: None - Medications Home Medications: Home Medications Medication Instructions Recorded Confirmed Last Taken Type Acetaminophen/Codeine [Tylenol #3] 1 tab PO Q6H PRN #12 tab 11/02/16 Unknown Rx Clindamycin [Clindamycin CAP] 300 mg PO Q8H #30 cap 11/02/16 Unknown Rx cephALEXin [Keflex] 500 mg PO Q12HR #14 cap 05/03/17 Unknown Rx Fluticasone [Flonase] 1 spray NS QDAY #1 bottle 11/20/17 Unknown Rx medroxyPROGESTERone ACETATE 10 mg PO QDAY #10 tablet 08/08/18 Unknown Rx [Provera] metroNIDAZOLE [Flagyl] 500 mg PO Q8HR #21 tab 08/08/18 Unknown Rx Acetaminophen/Codeine [Tylenol 1 tab PO Q6H PRN #10 tab 02/06/19 Unknown Rx /Codeine # 3 tab] Amoxicillin [Amoxicillin TAB] 875 mg PO BID #14 tablet 02/06/19 Unknown Rx ED Physical Exam - General Limitations: No Limitations General appearance: alert, in no apparent distress - Head Head exam: Present: atraumatic, normocephalic, normal inspection - Eye Eye exam: Present: normal appearance, PERRL Pupils: Present: normal accommodation - ENT ENT exam: Present: mucous membranes moist, normal external ear exam - Expanded ENT Exam Expanded TM/Canal exam: Erythema: Right TM, Left TM, Effusion: Right TM, Left TM Mouth exam: Present: normal external inspection Teeth exam: Present: normal inspection Throat exam: Positive: normal inspection. Negative: tonsillar erythema, tonsillar exudate - Neck Neck exam: Present: normal inspection, full ROM. Absent: tenderness, lymphadenopathy - Respiratory Respiratory exam: Present: normal lung sounds bilaterally. Absent: respiratory distress - Cardiovascular Cardiovascular Exam: Present: regular rate, normal rhythm. Absent: systolic murmur, diastolic murmur, rubs, gallop - GI/Abdominal GI/Abdominal exam: Present: soft, normal bowel sounds - Extremities Exam Extremities exam: Present: normal inspection - Back Exam Back exam: Present: normal inspection - Neurological Exam Neurological exam: Present: alert, oriented X3 - Psychiatric Psychiatric exam: Present: normal affect, normal mood - Skin Skin exam: Present: warm, dry, intact, normal color. Absent: rash ED Course Vital Signs 02/06/19 09:23 Temperature 98.1 F Pulse Rate 94 H Respiratory 16 Rate Blood Pressure 112/55 O2 Sat by Pulse 98 Oximetry ED Medical Decision Making - Medical Decision Making This is a 23-year-old female presents with bilateral ear effusion with pain. Tympanic membranes intact bilaterally. Ear is intact bilaterally Patient is in no acute distress. Discussed follow-up with primary care physician. Critical care attestation.: If time is entered above; I have spent that time in minutes in the direct care of this critically ill patient, excluding procedure time. ED Disposition Clinical Impression: Otitis Disposition: DC-01 TO HOME OR SELFCARE Is pt being admited?: No Does the pt Need Aspirin: No Condition: Stable Instructions: Otitis Media (ED) Additional Instructions: Make sure to follow up with the primary care physician as discussed. Take all your medications as you've been prescribed. If you have any worsening symptoms or develop new symptoms please return to ED immediately. Prescriptions: Amoxicillin [Amoxicillin TAB] 875 mg PO BID #14 tablet Acetaminophen/Codeine [Tylenol /Codeine # 3 tab] 1 tab PO Q6H PRN #10 tab PRN Reason: pain Referrals: PADMA RAMIREZ MD [Primary Care Provider] - 3-5 Days [facility] [Outside] - 3-5 Days [facility] [Outside] - 3-5 Days [facility] [Outside] - 3-5 Days Forms: Work/School Release Form(ED) Time of Disposition: 10:26
[2019-02-06] MEDS ORDERED: TRIMOX PO ONE (11:11)
[2019-02-06] MEDS ORDERED: TYLENOL PO ONE (11:11)
== END 2019-02-06 11:23 | disposition home or self-care (01) ==
LOC: ED 09:01
DX: H66.93 Otitis media, unspecified, bilateral (principal)
CPT/HCPCS: 99282

== ENCOUNTER 2019-03-03 09:27 | Emergency (ER) | payer SELFPAY ==
[2019-03-03 09:32] VITALS: BP 117/65
[2019-03-03] MEDS ORDERED: IBUPROFEN PO ONE (10:25)
[2019-03-03] MEDS ORDERED: ULTRAM PO ONE (10:50)
[2019-03-03] MEDS ORDERED: TYLENOL PO ONE (10:50)
--- NOTE | 2019-03-03 10:51 | Emergency Department Report ---
ED Extremity Problem HPI - General Chief complaint: Extremity Injury, Upper Stated complaint: LEFT ARM PAIN Time Seen by Provider: 03/03/19 10:12 Source: patient Mode of arrival: Ambulatory Limitations: No Limitations - History of Present Illness Initial comments: Patient is a 23-year-old female who injured her left wrists. Patient states she was holding her small infant and he almost fell from her arms and she reached with her left arm and a way and has had pain in the left wrist since. Pain is located at the anatomical snuff box region of the wrist. Patient did not hear a popping sound. Patient states she has increased pain which tries to hold her wrist straight and is better with angulating towards the radius. Patient states the pain is aching and throbbing in nature and is 6 out of 10 in severity. - Related Data Previous Rx's Medication Instructions Recorded Last Taken Type Acetaminophen/Codeine [Tylenol #3] 1 tab PO Q6H PRN #12 tab 11/02/16 Unknown Rx Clindamycin [Clindamycin CAP] 300 mg PO Q8H #30 cap 11/02/16 Unknown Rx cephALEXin [Keflex] 500 mg PO Q12HR #14 cap 05/03/17 Unknown Rx Fluticasone [Flonase] 1 spray NS QDAY #1 bottle 11/20/17 Unknown Rx medroxyPROGESTERone ACETATE 10 mg PO QDAY #10 tablet 08/08/18 Unknown Rx [Provera] metroNIDAZOLE [Flagyl] 500 mg PO Q8HR #21 tab 08/08/18 Unknown Rx Acetaminophen/Codeine [Tylenol 1 tab PO Q6H PRN #10 tab 02/06/19 Unknown Rx /Codeine # 3 tab] Amoxicillin [Amoxicillin TAB] 875 mg PO BID #14 tablet 02/06/19 Unknown Rx traMADol [Ultram] 50 mg PO Q6HR PRN #10 tablet 03/03/19 Unknown Rx Allergies Allergy/AdvReac Type Severity Reaction Status Date / Time No Known Allergies Allergy Verified 02/06/19 09:12 ED Review of Systems ROS: Stated complaint: LEFT ARM PAIN Other details as noted in HPI Comment: All other systems reviewed and negative ED Past Medical Hx - Past Medical History Hx Hypertension: No Hx Diabetes: No Hx Deep Vein Thrombosis: No Hx Renal Disease: No Hx Sickle Cell Disease: No Hx Seizures: No Hx Asthma: No Hx HIV: No Additional medical history: scoliosis. 3 cysts on right arm, Cyst on ovaries, Miscarriage - Surgical History Additional Surgical History: x 1 - Social History Smoking Status: Never Smoker Substance Use Type: None - Medications Home Medications: Home Medications Medication Instructions Recorded Confirmed Last Taken Type Acetaminophen/Codeine [Tylenol #3] 1 tab PO Q6H PRN #12 tab 11/02/16 Unknown Rx Clindamycin [Clindamycin CAP] 300 mg PO Q8H #30 cap 11/02/16 Unknown Rx cephALEXin [Keflex] 500 mg PO Q12HR #14 cap 05/03/17 Unknown Rx Fluticasone [Flonase] 1 spray NS QDAY #1 bottle 11/20/17 Unknown Rx medroxyPROGESTERone ACETATE 10 mg PO QDAY #10 tablet 08/08/18 Unknown Rx [Provera] metroNIDAZOLE [Flagyl] 500 mg PO Q8HR #21 tab 08/08/18 Unknown Rx Acetaminophen/Codeine [Tylenol 1 tab PO Q6H PRN #10 tab 02/06/19 Unknown Rx /Codeine # 3 tab] Amoxicillin [Amoxicillin TAB] 875 mg PO BID #14 tablet 02/06/19 Unknown Rx traMADol [Ultram] 50 mg PO Q6HR PRN #10 tablet 03/03/19 Unknown Rx ED Physical Exam - General Limitations: No Limitations General appearance: alert, in no apparent distress - Head Head exam: Present: atraumatic, normocephalic - Eye Eye exam: Present: normal appearance - ENT ENT exam: Present: mucous membranes moist - Neck Neck exam: Present: normal inspection - Respiratory Respiratory exam: Absent: respiratory distress - GI/Abdominal GI/Abdominal exam: Absent: distended - Extremities Exam Extremities exam: Present: normal inspection - Expanded Upper Extremity Exam Left Forearm Wrist exam: Present: full ROM, tenderness (of the radial side of the wrist), other (ganglion cyst present). Absent: swelling, abrasion, laceration, deformity, crepidus - Back Exam Back exam: Present: normal inspection - Neurological Exam Neurological exam: Present: alert, oriented X3 - Psychiatric Psychiatric exam: Present: normal affect, normal mood - Skin Skin exam: Present: warm, dry, intact, normal color. Absent: rash ED Course Vital Signs 03/03/19 09:31 Temperature 98.7 F Pulse Rate 89 Respiratory 16 Rate Blood Pressure 117/65 [Left] O2 Sat by Pulse 99 Oximetry ED Medical Decision Making - Radiology Data Radiology results: image reviewed (wrist x-ray is within normal limits) - Medical Decision Making Patient has no wrist deformity or dislocation present on x-ray. Patient to be placed in a splint and patient will be discharged home with Mrs. symptomatically. Critical care attestation.: If time is entered above; I have spent that time in minutes in the direct care of this critically ill patient, excluding procedure time. ED Disposition Clinical Impression: Wrist sprain Qualifiers: Encounter type: initial encounter Laterality: left Qualified Code(s): S63.502A - Unspecified sprain of left wrist, initial encounter Disposition: TO HOME OR SELFCARE Is pt being admited?: No Does the pt Need Aspirin: No Condition: Stable Instructions: Wrist Sprain (ED), RICE Therapy (ED) Referrals: PADMA RAMIREZ MD [Primary Care Provider] - 3-5 Days Time of Disposition: 10:51
--- NOTE | 2019-03-03 11:09 | XRay Report ---
LEFT WRIST 3 VIEWS INDICATION: wrist pain after injury. COMPARISON: No relevant prior imaging study available. FINDINGS: No acute fracture or dislocation is seen. Carpal alignment is normal. No focal soft tissue swelling. IMPRESSION: 1. No acute findings. Signer Name: Milton Forman MD Signed: 03/03/2019 11:05 AM Workstation Name: [id number]
== END 2019-03-03 11:19 | disposition home or self-care (01) ==
LOC: ED 09:27
DX: S63.502A Unspecified sprain of left wrist, initial encounter (principal); M41.9 Scoliosis, unspecified; Z79.899 Other long term (current) drug therapy; W18.39XA Other fall on same level, initial encounter; Y93.89 Activity, other specified; Y92.89 Other specified places as the place of occurrence of the external cause; Y99.8 Other external cause status

== ENCOUNTER 2019-05-10 11:48 | Emergency (ER) | payer SELFPAY ==
[2019-05-10 11:53] VITALS: BP 125/69
--- NOTE | 2019-05-10 12:06 | Emergency Department Report ---
ED ENT HPI - General Chief complaint: Earache Stated complaint: LFT EAR ACHE Time Seen by Provider: 05/10/19 12:05 Source: patient Mode of arrival: Ambulatory Limitations: No Limitations - History of Present Illness Initial comments: This is a 24-year-old female nontoxic well in appearance with no signs of distress presents to the ED with complaint of left earache. Patient denies any hearing loss. Denies any mastoid tenderness. Denies any fever, chills, headache, nausea, vomiting, chest pain or SOB. Denies any other complaints. Denies any allergies. MD complaint: ear pain -: days(s) Location: L ear Severity: mild Severity scale (0 -10): 8 Quality: aching Consistency: constant Improves with: none Worsens with: none Associated Symptoms: denies: fever, cough, gum swelling, toothache, pain with swallowing, sore throat, tinnitus, hearing loss, discharge from ear, rhinorrhea - Related Data Previous Rx's Medication Instructions Recorded Last Taken Type Acetaminophen/Codeine [Tylenol #3] 1 tab PO Q6H PRN #12 tab 11/02/16 Unknown Rx Clindamycin [Clindamycin CAP] 300 mg PO Q8H #30 cap 11/02/16 Unknown Rx cephALEXin [Keflex] 500 mg PO Q12HR #14 cap 05/03/17 Unknown Rx Fluticasone [Flonase] 1 spray NS QDAY #1 bottle 11/20/17 Unknown Rx medroxyPROGESTERone ACETATE 10 mg PO QDAY #10 tablet 08/08/18 Unknown Rx [Provera] metroNIDAZOLE [Flagyl] 500 mg PO Q8HR #21 tab 08/08/18 Unknown Rx Acetaminophen/Codeine [Tylenol 1 tab PO Q6H PRN #10 tab 02/06/19 Unknown Rx /Codeine # 3 tab] Amoxicillin [Amoxicillin TAB] 875 mg PO BID #14 tablet 02/06/19 Unknown Rx traMADol [Ultram] 50 mg PO Q6HR PRN #10 tablet 03/03/19 Unknown Rx Amoxicillin [Amoxicillin TAB] 875 mg PO BID #20 tablet 04/15/19 Unknown Rx Ondansetron [Zofran Odt] 4 mg PO Q8HR PRN #14 tab.rapdis 04/15/19 Unknown Rx traMADol [Ultram 50 MG tab] 50 mg PO Q4HR PRN #14 tablet 04/15/19 Unknown Rx Acetaminophen/Codeine [Tylenol 1 tab PO Q6H PRN #12 tab 05/10/19 Unknown Rx /Codeine # 3 tab] Amoxicillin [Amoxicillin TAB] 875 mg PO BID #20 tablet 05/10/19 Unknown Rx Allergies Allergy/AdvReac Type Severity Reaction Status Date / Time No Known Allergies Allergy Verified 02/06/19 09:12 ED Dental HPI - General Chief complaint: Earache Stated complaint: LFT EAR ACHE Time Seen by Provider: 05/10/19 12:05 Source: patient Mode of arrival: Ambulatory Limitations: No Limitations - Related Data Previous Rx's Medication Instructions Recorded Last Taken Type Acetaminophen/Codeine [Tylenol #3] 1 tab PO Q6H PRN #12 tab 11/02/16 Unknown Rx Clindamycin [Clindamycin CAP] 300 mg PO Q8H #30 cap 11/02/16 Unknown Rx cephALEXin [Keflex] 500 mg PO Q12HR #14 cap 05/03/17 Unknown Rx Fluticasone [Flonase] 1 spray NS QDAY #1 bottle 11/20/17 Unknown Rx medroxyPROGESTERone ACETATE 10 mg PO QDAY #10 tablet 08/08/18 Unknown Rx [Provera] metroNIDAZOLE [Flagyl] 500 mg PO Q8HR #21 tab 08/08/18 Unknown Rx Acetaminophen/Codeine [Tylenol 1 tab PO Q6H PRN #10 tab 02/06/19 Unknown Rx /Codeine # 3 tab] Amoxicillin [Amoxicillin TAB] 875 mg PO BID #14 tablet 02/06/19 Unknown Rx traMADol [Ultram] 50 mg PO Q6HR PRN #10 tablet 03/03/19 Unknown Rx Amoxicillin [Amoxicillin TAB] 875 mg PO BID #20 tablet 04/15/19 Unknown Rx Ondansetron [Zofran Odt] 4 mg PO Q8HR PRN #14 tab.rapdis 04/15/19 Unknown Rx traMADol [Ultram 50 MG tab] 50 mg PO Q4HR PRN #14 tablet 04/15/19 Unknown Rx Acetaminophen/Codeine [Tylenol 1 tab PO Q6H PRN #12 tab 05/10/19 Unknown Rx /Codeine # 3 tab] Amoxicillin [Amoxicillin TAB] 875 mg PO BID #20 tablet 05/10/19 Unknown Rx Allergies Allergy/AdvReac Type Severity Reaction Status Date / Time No Known Allergies Allergy Verified 02/06/19 09:12 ED Review of Systems ROS: Stated complaint: LFT EAR ACHE Other details as noted in HPI Constitutional: denies: chills, fever Eyes: denies: eye pain, eye discharge, vision change ENT: ear pain. denies: throat pain Respiratory: denies: cough, shortness of breath, wheezing Cardiovascular: denies: chest pain, palpitations Endocrine: no symptoms reported Gastrointestinal: denies: abdominal pain, nausea, diarrhea Genitourinary: denies: urgency, dysuria, discharge Musculoskeletal: denies: back pain, joint swelling, arthralgia Skin: denies: rash, lesions Neurological: denies: headache, weakness, paresthesias Psychiatric: denies: anxiety, depression Hematological/Lymphatic: denies: easy bleeding, easy bruising ED Past Medical Hx - Past Medical History Previous Medical History?: Yes Hx Hypertension: No Hx Diabetes: No Hx Deep Vein Thrombosis: No Hx Renal Disease: No Hx Sickle Cell Disease: No Hx Seizures: No Hx Asthma: No Hx HIV: No Additional medical history: scoliosis. 3 cysts on right arm, Cyst on ovaries, Miscarriage - Surgical History Past Surgical History?: Yes Additional Surgical History: x 2 - Social History Smoking Status: Current Every Day Smoker Substance Use Type: None - Medications Home Medications: Home Medications Medication Instructions Recorded Confirmed Last Taken Type Acetaminophen/Codeine [Tylenol #3] 1 tab PO Q6H PRN #12 tab 11/02/16 Unknown Rx Clindamycin [Clindamycin CAP] 300 mg PO Q8H #30 cap 11/02/16 Unknown Rx cephALEXin [Keflex] 500 mg PO Q12HR #14 cap 05/03/17 Unknown Rx Fluticasone [Flonase] 1 spray NS QDAY #1 bottle 11/20/17 Unknown Rx medroxyPROGESTERone ACETATE 10 mg PO QDAY #10 tablet 08/08/18 Unknown Rx [Provera] metroNIDAZOLE [Flagyl] 500 mg PO Q8HR #21 tab 08/08/18 Unknown Rx Acetaminophen/Codeine [Tylenol 1 tab PO Q6H PRN #10 tab 02/06/19 Unknown Rx /Codeine # 3 tab] Amoxicillin [Amoxicillin TAB] 875 mg PO BID #14 tablet 07/16/19 Unknown Rx traMADol [Ultram] 50 mg PO Q6HR PRN #10 tablet 03/03/19 Unknown Rx Amoxicillin [Amoxicillin TAB] 875 mg PO BID #20 tablet 04/15/19 Unknown Rx Ondansetron [Zofran Odt] 4 mg PO Q8HR PRN #14 tab.rapdis 04/15/19 Unknown Rx traMADol [Ultram 50 MG tab] 50 mg PO Q4HR PRN #14 tablet 04/15/19 Unknown Rx Acetaminophen/Codeine [Tylenol 1 tab PO Q6H PRN #12 tab 05/10/19 Unknown Rx /Codeine # 3 tab] Amoxicillin [Amoxicillin TAB] 875 mg PO BID #20 tablet 05/10/19 Unknown Rx ED Physical Exam - General Limitations: No Limitations General appearance: alert, in no apparent distress - Head Head exam: Present: atraumatic, normocephalic - Expanded ENT Exam Expanded Ear exam: Present: normal external inspection TM/Canal exam: Erythema: Left TM, Bulging: Left TM Mouth exam: Present: normal external inspection Teeth exam: Present: normal inspection Throat exam: Positive: normal inspection - Neck Neck exam: Present: normal inspection, full ROM. Absent: tenderness, meningismus, lymphadenopathy - Extremities Exam Extremities exam: Present: normal inspection, full ROM - Back Exam Back exam: Present: normal inspection, full ROM - Neurological Exam Neurological exam: Present: alert, oriented X3, normal gait - Psychiatric Psychiatric exam: Present: normal affect, normal mood - Skin Skin exam: Present: warm, dry, intact, normal color. Absent: rash ED Course Vital Signs 05/10/19 11:51 Temperature 98.5 F Pulse Rate 83 Respiratory 16 Rate Blood Pressure 125/69 O2 Sat by Pulse 100 Oximetry - Reevaluation(s) Reevaluation #1: 05/10/19 12:09 Patient is speaking in full sentences with no signs of distress noted. ED Medical Decision Making - Medical Decision Making Patient was instructed to Follow-up with a primary care doctor in 3-5 days or if symptoms worsen and continue return to emergency room as soon as possible. At time of discharge, the patient does not seem toxic or ill in appearance. No acute signs of distress noted. Patient agrees to discharge treatment plan of care. No further questions noted by the patient. Critical care attestation.: If time is entered above; I have spent that time in minutes in the direct care of this critically ill patient, excluding procedure time. ED Disposition Clinical Impression: Left otitis media Qualifiers: Otitis media type: unspecified Qualified Code(s): H66.92 - Otitis media, unspecified, left ear Disposition: DC- TO HOME OR SELFCARE Is pt being admited?: No Does the pt Need Aspirin: No Condition: Stable Instructions: Otitis Media (ED), Acetaminophen/Codeine (By mouth) Additional Instructions: Follow-up with a primary care doctor in 3-5 days or if symptoms worsen and continue return to emergency room as soon as possible. Prescriptions: Amoxicillin [Amoxicillin TAB] 875 mg PO BID #20 tablet Acetaminophen/Codeine [Tylenol /Codeine # 3 tab] 1 tab PO Q6H PRN #12 tab PRN Reason: Pain , Severe (7-10) Referrals: PRIMARY CARE, [Referring] - 3-5 Days JUAN J BENOIT MD [Staff Physician] - 3-5 Days SHAYAN REYNOLDS MD [Staff Physician] - 3-5 Days [facility] [Outside] - 3-5 Days [facility] [Outside] - 3-5 Days Forms: Work/School Release Form(ED)
== END 2019-05-10 13:30 | disposition home or self-care (01) ==
LOC: ED 11:48
DX: H66.92 Otitis media, unspecified, left ear (principal); F17.200 Nicotine dependence, unspecified, uncomplicated; Z79.899 Other long term (current) drug therapy
CPT/HCPCS: 99281

== ENCOUNTER 2019-06-11 23:31 | Emergency (ER) | payer SELFPAY ==
[2019-06-11 23:41] VITALS: BP 122/51
[2019-06-12] MEDS ORDERED: IBUPROFEN 800 MG TAB PO ONE (00:45)
[2019-06-12] MEDS ORDERED: HYDROcodone/ACETAMINOPHEN 5-325 MG TAB PO ONE (00:45)
--- NOTE | 2019-06-12 00:49 | Emergency Department Report ---
Minor Respiratory - HPI Chief Complaint: Sore Throat Stated Complaint: LT EARACHE THROAT PAIN Time Seen by Provider: 06/12/19 00:19 Duration: 2 weeks Pain Location: Ear Severity: moderate Minor Respiratory: Yes Able to Tolerate Fluids, Yes Ear Pain, No Rhinorrhea, No Cough, No Sick Contacts, No Hemoptysis, No Chest Pain, No Shortness of Breath, No Fever Other History: Paco is a 24 yo female with hx of previous ear infection who presents with left ear pain for 2 weeks. Moderately severe pain gradual onset worsens when chewing food. ED Review of Systems ROS: Stated complaint: LT EARACHE THROAT PAIN Other details as noted in HPI Constitutional: denies: fever, malaise ENT: ear pain, dental pain. denies: throat pain, congestion Respiratory: denies: cough, shortness of breath Gastrointestinal: denies: abdominal pain, nausea, vomiting ED Past Medical Hx - Past Medical History Hx Hypertension: No Hx Diabetes: No Hx Deep Vein Thrombosis: No Hx Renal Disease: No Hx Sickle Cell Disease: No Hx Seizures: No Hx Asthma: No Hx HIV: No Additional medical history: scoliosis. 3 cysts on right arm, Cyst on ovaries, Miscarriage - Surgical History Additional Surgical History: x 2 - Social History Smoking Status: Current Every Day Smoker Substance Use Type: None - Medications Home Medications: Home Medications Medication Instructions Recorded Confirmed Last Taken Type Acetaminophen/Codeine [Tylenol #3] 1 tab PO Q6H PRN #12 tab 11/02/16 Unknown Rx Clindamycin [Clindamycin CAP] 300 mg PO Q8H #30 cap 11/02/16 Unknown Rx cephALEXin [Keflex] 500 mg PO Q12HR #14 cap 05/03/17 Unknown Rx Fluticasone [Flonase] 1 spray NS QDAY #1 bottle 11/20/17 Unknown Rx medroxyPROGESTERone ACETATE 10 mg PO QDAY #10 tablet 08/08/18 Unknown Rx [Provera] metroNIDAZOLE [Flagyl] 500 mg PO Q8HR #21 tab 08/08/18 Unknown Rx Acetaminophen/Codeine [Tylenol 1 tab PO Q6H PRN #10 tab 02/06/19 Unknown Rx /Codeine # 3 tab] Amoxicillin [Amoxicillin TAB] 875 mg PO BID #14 tablet 02/06/19 Unknown Rx traMADoL [Ultram] 50 mg PO Q6HR PRN #10 tablet 03/03/19 Unknown Rx Amoxicillin [Amoxicillin TAB] 875 mg PO BID #20 tablet 04/15/19 Unknown Rx Ondansetron [Zofran Odt] 4 mg PO Q8HR PRN #14 tab.rapdis 04/15/19 Unknown Rx traMADoL [Ultram 50 MG tab] 50 mg PO Q4HR PRN #14 tablet 04/15/19 Unknown Rx Acetaminophen/Codeine [Tylenol 1 tab PO Q6H PRN #12 tab 05/10/19 Unknown Rx /Codeine # 3 tab] Amoxicillin [Amoxicillin TAB] 875 mg PO BID #20 tablet 05/10/19 Unknown Rx Amoxicillin [Amoxicillin TAB] 875 mg PO BID 10 Days #20 tablet 06/12/19 Unknown Rx Ibuprofen [Motrin 400 MG tab] 400 mg PO Q8H PRN #15 tablet 06/12/19 Unknown Rx Minor Respiratory Exam - Exam General: Vital signs noted. No distress. Alert and acting appropriately. HEENT: Yes Moist Mucous Membranes, No Pharyngeal Erythema, No Pharyngeal Exudates, No Rhinorrhea, No Conjuctival Injection Ear: Left TM Bulge (opaque effusion on left, right TM WNL) Neck: Yes Supple, No Adenopathy Lungs: Yes Good Air Exchange, No Wheezes, No Ronchi, No Stridor, No Cough, No Labored Respirations, No Retractions, No Use of Accessory Muscles, No Other Abnormal Lung Sounds Heart: Yes Regular, No Murmur Skin: No Rash, No Edema Neurologic: Alert and oriented, no deficits. Musculoskeletal: Unremarkable. ED Course Vital Signs 06/11/19 23:40 Temperature 98.5 F Pulse Rate 81 Respiratory 18 Rate Blood Pressure 122/51 O2 Sat by Pulse 99 Oximetry ED Medical Decision Making - Medical Decision Making acute left otitis media: rx amoxicillin Critical care attestation.: If time is entered above; I have spent that time in minutes in the direct care of this critically ill patient, excluding procedure time. ED Disposition Clinical Impression: Acute left otitis media Disposition: - TO HOME OR SELFCARE Is pt being admited?: No Does the pt Need Aspirin: No Condition: Stable Instructions: Otitis Media (ED) Prescriptions: Amoxicillin [Amoxicillin TAB] 875 mg PO BID 10 Days #20 tablet Ibuprofen [Motrin 400 MG tab] 400 mg PO Q8H PRN #15 tablet PRN Reason: Pain , Severe (7-10) Referrals: [facility] [Outside] - 3-5 Days Forms: Work/School Release Form(ED)
== END 2019-06-12 01:00 | disposition home or self-care (01) ==
LOC: ED 23:31
DX: H66.92 Otitis media, unspecified, left ear (principal); F17.200 Nicotine dependence, unspecified, uncomplicated; Z79.2 Long term (current) use of antibiotics; Z98.890 Other specified postprocedural states; Z79.1 Long term (current) use of non-steroidal anti-inflammatories (NSAID); Z79.899 Other long term (current) drug therapy
CPT/HCPCS: 99282

== ENCOUNTER 2019-08-07 08:56 | Emergency (ER) | payer SELFPAY ==
--- NOTE | 2019-08-07 12:03 | Emergency Department Report ---
ED ENT HPI - General Chief complaint: Dental/Oral Stated complaint: TOOTHACHE Time Seen by Provider: 08/07/19 11:58 Source: patient Mode of arrival: Ambulatory Limitations: No Limitations - History of Present Illness Initial comments: 24 YO AA FEMALE COMES TO ER WITH DENTAL PAIN. MANDIBULAR MOLAR AREA W DIFFUSE DISEASE. SEEN IN ER BEFORE. DOES NOT FOLLOW UP WITH DMD DUE TO NO INSURANCE. [facility] INTACT NO [facility]SC[facility] NO LUDWIGS NO [facility] VSS PT EDUCATED ON DENTAL CARE MD complaint: tooth pain -: month(s) Consistency: constant Improves with: none Worsens with: none Context- Dental: history of dental caries Associated Symptoms: toothache - Related Data Previous Rx's Medication Instructions Recorded Last Taken Type Amoxicillin [Trimox CAP] 500 mg PO Q8H #30 capsule 08/07/19 Unknown Rx Allergies Allergy/AdvReac Type Severity Reaction Status Date / Time No Known Allergies Allergy Verified 02/06/19 09:12 ED Dental HPI - General Chief complaint: Dental/Oral Stated complaint: TOOTHACHE Time Seen by Provider: 08/07/19 11:58 Source: patient Mode of arrival: Ambulatory Limitations: No Limitations - Related Data Previous Rx's Medication Instructions Recorded Last Taken Type Amoxicillin [Trimox CAP] 500 mg PO Q8H #30 capsule 08/07/19 Unknown Rx Allergies Allergy/AdvReac Type Severity Reaction Status Date / Time No Known Allergies Allergy Verified 02/06/19 09:12 ED Review of Systems ROS: Stated complaint: TOOTHACHE Other details as noted in HPI Comment: All other systems reviewed and negative ED Past Medical Hx - Past Medical History Previous Medical History?: No Hx Hypertension: No Hx Diabetes: No Hx Deep Vein Thrombosis: No Hx Renal Disease: No Hx Sickle Cell Disease: No Hx Seizures: No Hx Asthma: No Hx HIV: No Additional medical history: scoliosis. 3 cysts on right arm, Cyst on ovaries, Miscarriage - Surgical History Past Surgical History?: Yes Additional Surgical History: x 2 - Social History Smoking Status: Current Every Day Smoker - Medications Home Medications: Home Medications Medication Instructions Recorded Confirmed Last Taken Type Amoxicillin [Trimox CAP] 500 mg PO Q8H #30 capsule 08/07/19 Unknown Rx ED Physical Exam - General Limitations: No Limitations General appearance: alert, in no apparent distress - Head Head exam: Present: atraumatic, normocephalic - Eye Eye exam: Present: normal appearance - ENT ENT exam: Present: mucous membranes moist - Expanded ENT Exam Expanded Mouth exam: Absent: drooling, trismus, muffled voice 1 - Other (DIFFUSE CARIES) - Neck Neck exam: Present: normal inspection - Respiratory Respiratory exam: Present: normal lung sounds bilaterally. Absent: respiratory distress - Cardiovascular Cardiovascular Exam: Present: regular rate, normal rhythm. Absent: systolic murmur, diastolic murmur, rubs, gallop - GI/Abdominal GI/Abdominal exam: Present: soft, normal bowel sounds - Extremities Exam Extremities exam: Present: normal inspection - Back Exam Back exam: Present: normal inspection - Neurological Exam Neurological exam: Present: alert, oriented X3 - Psychiatric Psychiatric exam: Present: normal affect, normal mood - Skin Skin exam: Present: warm, dry, intact, normal color. Absent: rash ED Medical Decision Making - Medical Decision Making [facility] INTACT NO [facility] [employer] HAS NOT FOLLOWED UP WITH DMD MEDICATED IN ER DC HOME WITH DMD REFERRAL VS NORMAL DOCUMENTED MANUALLY BY RN - Differential Diagnosis DENTAL DISEASE Critical care attestation.: If time is entered above; I have spent that time in minutes in the direct care of this critically ill patient, excluding procedure time. ED Disposition Clinical Impression: Dental caries Disposition: TO HOME OR SELFCARE Is pt being admited?: No Does the pt Need Aspirin: No Condition: Stable Instructions: Dental Caries (ED), Toothache (ED) Additional Instructions: SEE DMD KARINE Prescriptions: Amoxicillin [Trimox CAP] 500 mg PO Q8H #30 capsule Referrals: [facility] [Outside] - 3-5 Days [facility] [Outside] - 3-5 Days Time of Disposition: 12:01
[2019-08-07] MEDS ORDERED: AMOXICILLIN 500 MG CAP PO ONE (12:04)
[2019-08-07] MEDS ORDERED: ACETAMINOPHEN 500 MG TAB PO ONE (12:04)
== END 2019-08-07 12:27 | disposition home or self-care (01) ==
LOC: ED 08:56
DX: K02.9 Dental caries, unspecified (principal); F17.200 Nicotine dependence, unspecified, uncomplicated; Z79.899 Other long term (current) drug therapy

== ENCOUNTER 2019-08-12 06:30 | Emergency (ER) | payer SELFPAY ==
[2019-08-12 06:55] VITALS: BP 120/75
[2019-08-12] MEDS ORDERED: HYDROcodone/ACETAMINOPHEN 5-325 MG TAB PO ONE (10:26)
--- NOTE | 2019-08-12 10:43 | Emergency Department Report ---
ED ENT HPI - General Chief complaint: Earache Stated complaint: LT EAR PAIN Source: patient Mode of arrival: Ambulatory Limitations: No Limitations - History of Present Illness Initial comments: 24-year-old female complaining of left ear pain 4 days patient was seen here on Tuesday, August 07 for Tuesday she was prescribed amoxicillin and ibuprofen and Tylenol for pain. Patient was also given referral for dental follow-up. Patient states she has not been able to see a dentist as yet but does have the referral at home. Patient states the pain medicine is not helping all her molars are hurting. Patient denies any difficulty swallowing. MD complaint: tooth pain, ear pain -: days(s) (4) Location: L ear Severity: moderate Quality: sharp Improves with: none Worsens with: none Context- Dental: history of dental caries Associated Symptoms: toothache. denies: fever, gum swelling, pain with swallowing, sore throat, tinnitus, discharge from ear, rhinorrhea - Related Data Previous Rx's Medication Instructions Recorded Last Taken Type Amoxicillin [Trimox CAP] 500 mg PO Q8H #30 capsule 08/07/19 Unknown Rx Acetaminophen/Codeine [Tylenol 1 tab PO Q4HR PRN #16 tablet 08/12/19 Unknown Rx /Codeine # 3 tab] Allergies Allergy/AdvReac Type Severity Reaction Status Date / Time No Known Allergies Allergy Verified 02/06/19 09:12 ED Dental HPI - General Chief complaint: Earache Stated complaint: LT EAR PAIN Source: patient Mode of arrival: Ambulatory Limitations: No Limitations - History of Present Illness MD complaint: tooth pain, ear pain - Related Data Previous Rx's Medication Instructions Recorded Last Taken Type Amoxicillin [Trimox CAP] 500 mg PO Q8H #30 capsule 08/07/19 Unknown Rx Acetaminophen/Codeine [Tylenol 1 tab PO Q4HR PRN #16 tablet 08/12/19 Unknown Rx /Codeine # 3 tab] Allergies Allergy/AdvReac Type Severity Reaction Status Date / Time No Known Allergies Allergy Verified 02/06/19 09:12 ED Review of Systems ROS: Stated complaint: LT EAR PAIN Other details as noted in HPI Comment: All other systems reviewed and negative Constitutional: denies: chills, fever ENT: ear pain Respiratory: denies: cough, shortness of breath Cardiovascular: denies: chest pain Gastrointestinal: denies: abdominal pain Genitourinary: denies: dysuria, frequency Neurological: denies: headache ED Past Medical Hx - Past Medical History Previous Medical History?: Yes Hx Hypertension: No Hx Diabetes: No Hx Deep Vein Thrombosis: No Hx Renal Disease: No Hx Sickle Cell Disease: No Hx Seizures: No Hx Asthma: No Hx HIV: No Additional medical history: scoliosis. 3 cysts on right arm, Cyst on ovaries, Miscarriage - Surgical History Past Surgical History?: Yes Additional Surgical History: x 2 - Social History Smoking Status: Current Every Day Smoker Substance Use Type: None - Medications Home Medications: Home Medications Medication Instructions Recorded Confirmed Last Taken Type Amoxicillin [Trimox CAP] 500 mg PO Q8H #30 capsule 08/07/19 Unknown Rx Acetaminophen/Codeine [Tylenol 1 tab PO Q4HR PRN #16 tablet 08/12/19 Unknown Rx /Codeine # 3 tab] ED Physical Exam - General Limitations: No Limitations General appearance: alert, in no apparent distress - Head Head exam: Present: atraumatic - Eye Eye exam: Present: normal appearance. Absent: conjunctival injection - ENT ENT exam: Present: normal exam, mucous membranes moist, TM's normal bilaterally, other (No gum swelling, no fluctunance to indicate dental abscess, no facial swelling no trismus) - Neck Neck exam: Present: normal inspection. Absent: tenderness, lymphadenopathy - Respiratory Respiratory exam: Present: normal lung sounds bilaterally. Absent: respiratory distress, wheezes, rales, rhonchi - Cardiovascular Cardiovascular Exam: Present: regular rate, normal heart sounds - Extremities Exam Extremities exam: Present: normal inspection - Neurological Exam Neurological exam: Present: alert, oriented X3 - Psychiatric Psychiatric exam: Present: normal affect - Skin Skin exam: Present: warm, dry, intact, normal color. Absent: rash ED Course Vital Signs 08/12/19 06:46 Temperature 98.3 F Pulse Rate 89 Respiratory 16 Rate Blood Pressure 120/75 O2 Sat by Pulse 100 Oximetry ED Medical Decision Making - Medical Decision Making 24-year-old patient complaining of left ear pain patient was seen at this facility on August 07, 2019. With complaint of toothache patient prescribed amoxicillin and ibuprofen. The left ear pain is possibly referred pain from her dental pain. On examination her TMs are normal bilaterally. Discussed with the patient the importance of follow-up with a dentist as soon as possible. Patient also instructed to complete the amoxicillin as prescribed. Rx for Tylenol No. 3 given. Patient is able to open mouth fully no facial swelling and no red flags seen patient needs follow-up with dentist. Critical Care Time: No Critical care attestation.: If time is entered above; I have spent that time in minutes in the direct care of this critically ill patient, excluding procedure time. ED Disposition Clinical Impression: Ear ache, Pain, dental Disposition: TO HOME OR SELFCARE Is pt being admited?: No Does the pt Need Aspirin: No Condition: Stable Instructions: Dental Caries (ED), Toothache (ED) Additional Instructions: Continue with amoxicillin until finished also take continue with ibuprofen. Take Tylenol No. 3 as prescribed for severe pain. It is imperative that you follow up with a dentist as soon as possible. Return to the emergency room for fever increased for start of facial swelling. Take all antibiotics until finished Prescriptions: Acetaminophen/Codeine [Tylenol /Codeine # 3 tab] 1 tab PO Q4HR PRN #16 tablet PRN Reason: Pain Referrals: PRIMARY CARE,MD [Primary Care Provider] - 3-5 Days
== END 2019-08-12 10:50 | disposition home or self-care (01) ==
LOC: ED 06:30
DX: K08.89 Other specified disorders of teeth and supporting structures (principal); H92.02 Otalgia, left ear; F17.200 Nicotine dependence, unspecified, uncomplicated; Z98.890 Other specified postprocedural states; Z79.899 Other long term (current) drug therapy

== ENCOUNTER 2019-09-02 08:51 | Emergency (ER) | payer SELFPAY ==
[2019-09-02 09:05] VITALS: BP 114/75
--- NOTE | 2019-09-02 10:53 | Emergency Department Report ---
Chief Complaint: Dental/Oral Stated Complaint: LFT SIDE TOOTH SWELLING/PAIN Time Seen by Provider: 09/02/19 10:25 - HPI History of Present Illness: 24-year-old female complaining of dental pain 2 weeks. States she is not able to eat as usual because of the dental pain she's taken ibuprofen which is upsetting her stomach. - ROS Review of Systems: Dental pain. She denies difficulty swallowing there is no facial swelling no fever chills no chest pain no shortness of breath no nausea no vomiting. - Exam Vital Signs: Vital Signs 09/02/19 09:04 Temperature 98.3 F Pulse Rate 82 Respiratory 20 Rate Blood Pressure 114/75 [Right] O2 Sat by Pulse 100 Oximetry Physical Exam: Well-appearing 24-year-old female respirations easy and unlabored. Able to fully open her mouth. Patient appeared to have left facial swelling. She had cloves stuck in her jaw once the cloves were removed there was absolutely no facial swelling .Examination of her mouth reveals no dental abscess there is no swelling or gum redness or tenderness.. Patient does have multiple dental caries. Patient has no facial swelling. No trismus. MSE screening note: Focused history and physical exam performed. Due to findings the following was ordered: Patient was seen in this emergency room on August 07 and 08/12/2019 during this time she was treated with she was also given RX Tylenol 3 for pain and Amoxicillin and instructed to follow up with the dentist. Patient has not follow-up with dentist. On examination patient does not have an abscess, No facial swelling airway is intact .. No trismus. Oral secretions are well controlled. Patient discussed with doctor:: [facility]ILLARY NOEL ED [place] [facility] [place] Clinical Impression: Pain due to dental caries Disposition: - TO HOME OR SELFCARE Is pt being admited?: No Does the pt Need Aspirin: No Condition: Stable Instructions: Dental Caries (ED), Toothache (ED) Additional Instructions: You need to follow up with Dentist as soon as possible. Try warm water gargles. Use Ambesol which is available over the counter. Referrals: [facility] [Outside] - 3-5 Days Time of Disposition: 11:03
== END 2019-09-02 11:11 | disposition left against medical advice (07) ==
LOC: ED 08:51
DX: K02.9 Dental caries, unspecified (principal)
CPT/HCPCS: 99282

== ENCOUNTER 2020-02-02 06:57 | Emergency (ER) | payer SELFPAY ==
[2020-02-02 07:26] VITALS: BP 124/78
--- NOTE | 2020-02-02 11:54 | Emergency Department Report ---
ED ENT HPI - General Chief complaint: Earache Stated complaint: LEFT EAR PAIN X 1WEEK Time Seen by Provider: 02/02/20 09:44 Source: patient Mode of arrival: Ambulatory Limitations: No Limitations - History of Present Illness Initial comments: 24-year-old -[place] female presents emergency department complaining of continued left ear pain which is been off and on for the past few months. Initially it was thought that it was secondary to a dental issue she had a tooth extracted. States that she is due for more dental extractions but was unable to get the complete extraction due to the onset of the coronavirus. States of the last couple days had a reemergence of dull ear pain with pressure and fullness no ringing but mild hearing decrease reports no chest pain or palpitations no nausea vomiting no discharge MD complaint: ear pain Location: L ear Severity: mild Quality: aching, dull Consistency: constant Improves with: none Worsens with: none Associated Symptoms: denies: gum swelling, toothache, pain with swallowing, sore throat, tinnitus, hearing loss, rhinorrhea - Related Data Previous Rx's Medication Instructions Recorded Last Taken Type Amoxicillin [Trimox CAP] 500 mg PO Q8H #30 capsule 08/07/19 Unknown Rx Acetaminophen/Codeine [Tylenol 1 tab PO Q4HR PRN #16 tablet 08/12/19 Unknown Rx /Codeine # 3 tab] Amoxicillin/Potassium Clav 1 each PO BID #20 tablet 02/02/20 Unknown Rx [Augmentin 875-125 Tablet] predniSONE [Deltasone] 20 mg PO QDAY #5 tab 02/02/20 Unknown Rx traMADoL [Ultram] 50 mg PO Q6HR PRN #10 tablet 02/02/20 Unknown Rx Allergies Allergy/AdvReac Type Severity Reaction Status Date / Time No Known Allergies Allergy Verified 02/06/19 09:12 ED Dental HPI - General Chief complaint: Earache Stated complaint: LEFT EAR PAIN X 1WEEK Time Seen by Provider: 02/02/20 09:44 Source: patient Mode of arrival: Ambulatory Limitations: No Limitations - Related Data Previous Rx's Medication Instructions Recorded Last Taken Type Amoxicillin [Trimox CAP] 500 mg PO Q8H #30 capsule 08/07/19 Unknown Rx Acetaminophen/Codeine [Tylenol 1 tab PO Q4HR PRN #16 tablet 08/12/19 Unknown Rx /Codeine # 3 tab] Amoxicillin/Potassium Clav 1 each PO BID #20 tablet 02/02/20 Unknown Rx [Augmentin 875-125 Tablet] predniSONE [Deltasone] 20 mg PO QDAY #5 tab 02/02/20 Unknown Rx traMADoL [Ultram] 50 mg PO Q6HR PRN #10 tablet 02/02/20 Unknown Rx Allergies Allergy/AdvReac Type Severity Reaction Status Date / Time No Known Allergies Allergy Verified 02/06/19 09:12 ED Review of Systems ROS: Stated complaint: LEFT EAR PAIN X 1WEEK Other details as noted in HPI Comment: All other systems reviewed and negative ED Past Medical Hx - Past Medical History Previous Medical History?: No Hx Hypertension: No Hx Diabetes: No Hx Deep Vein Thrombosis: No Hx Renal Disease: No Hx Sickle Cell Disease: No Hx Seizures: No Hx Asthma: No Hx HIV: No Additional medical history: scoliosis. 3 cysts on right arm, Cyst on ovaries, Miscarriage - Surgical History Past Surgical History?: Yes Additional Surgical History: x 2 - Social History Smoking Status: Current Every Day Smoker Substance Use Type: None - Medications Home Medications: Home Medications Medication Instructions Recorded Confirmed Last Taken Type Amoxicillin [Trimox CAP] 500 mg PO Q8H #30 capsule 08/07/19 Unknown Rx Acetaminophen/Codeine [Tylenol 1 tab PO Q4HR PRN #16 tablet 08/12/19 Unknown Rx /Codeine # 3 tab] Amoxicillin/Potassium Clav 1 each PO BID #20 tablet 02/02/20 Unknown Rx [Augmentin 875-125 Tablet] predniSONE [Deltasone] 20 mg PO QDAY #5 tab 02/02/20 Unknown Rx traMADoL [Ultram] 50 mg PO Q6HR PRN #10 tablet 02/02/20 Unknown Rx ED Physical Exam - General Limitations: No Limitations General appearance: alert, in no apparent distress - Head Head exam: Present: atraumatic, normocephalic - Eye Eye exam: Present: normal appearance, PERRL, EOMI - ENT ENT exam: Present: mucous membranes moist - Neck Neck exam: Present: normal inspection, tenderness, full ROM - Respiratory Respiratory exam: Present: normal lung sounds bilaterally. Absent: respiratory distress, wheezes, rales, rhonchi, accessory muscle use, decreased breath sounds - Cardiovascular Cardiovascular Exam: Present: regular rate, normal rhythm. Absent: bradycardia, tachycardia, systolic murmur, diastolic murmur, rubs, gallop - GI/Abdominal GI/Abdominal exam: Present: soft, normal bowel sounds. Absent: tenderness, guarding, mass, bruit - Extremities Exam Extremities exam: Present: normal inspection - Back Exam Back exam: Present: normal inspection. Absent: CVA tenderness (R), CVA tenderness (L) - Neurological Exam Neurological exam: Present: alert, oriented X3, CN II-XII intact, normal gait - Psychiatric Psychiatric exam: Present: normal affect, normal mood. Absent: agitated, anxious - Skin Skin exam: Present: warm, dry, intact, normal color. Absent: rash, cyanosis, diaphoretic, erythema, petechiae, pallor, abrasion ED Course Vital Signs 02/02/20 07:25 Temperature 98.3 F Pulse Rate 69 Respiratory 18 Rate Blood Pressure 124/78 O2 Sat by Pulse 100 Oximetry Critical care attestation.: If time is entered above; I have spent that time in minutes in the direct care of this critically ill patient, excluding procedure time. ED Disposition Clinical Impression: Otalgia of left ear, Otitis media Disposition: DC-01 TO HOME OR SELFCARE Is pt being admited?: No Does the pt Need Aspirin: No Condition: Stable Instructions: Earache (ED), Otitis Media (ED) Prescriptions: Amoxicillin/Potassium Clav [Augmentin 875-125 Tablet] 1 each PO BID #20 tablet predniSONE [Deltasone] 20 mg PO QDAY #5 tab traMADoL [Ultram] 50 mg PO Q6HR PRN #10 tablet PRN Reason: Pain Referrals: PRIMARY CARE, [Primary Care Provider] - 3-5 Days [facility] [Provider Group] - 3-5 Days
== END 2020-02-02 12:09 | disposition home or self-care (01) ==
LOC: ED 06:57
DX: H66.92 Otitis media, unspecified, left ear (principal); F17.200 Nicotine dependence, unspecified, uncomplicated; Z79.899 Other long term (current) drug therapy; Z98.890 Other specified postprocedural states
CPT/HCPCS: 99281

== ENCOUNTER 2020-04-01 08:54 | Emergency (ER) | payer SELFPAY ==
[2020-04-01 08:59] VITALS: BP 122/74
[2020-04-01 09:32] LABS: Basophils % (Auto) 0.4 % (0.0-1.8); Eosinophils # (Auto) 0.1 K/mm3 (0.0-0.4); Eosinophils % (Auto) 1.5 % (0.0-4.3); Hematocrit 36.8 % (30.3-42.9); Hemoglobin 11.9 gm/dl (10.1-14.3); Lymphocytes # (Auto) 1.9 K/mm3 (1.2-5.4); Lymphocytes % (Auto) 34.1 % (13.4-35.0); Mean Corpuscular HGB Conc 32 % (30-34); Mean Corpuscular Volume 75 fl (79-97); Monocytes # (Auto) 0.5 K/mm3 (0.0-0.8); Monocytes % (Auto) 9.7 % (0.0-7.3); Platelet Count 291 K/mm3 (140-440); Red Blood Count 4.88 M/mm3 (3.65-5.03); Red Cell Distribution Width 15.9 % (13.2-15.2)
[2020-04-01 09:42] LABS: Alanine Aminotransferase 13 units/L (7-56); Albumin 4.4 g/dL (3.9-5); Blood Urea Nitrogen 9 mg/dL (7-17); Calcium 9.5 mg/dL (8.4-10.2); Hemolysis Index 2
[2020-04-01 09:44] LABS: BUN/Creatinine Ratio 13
[2020-04-01 10:06] LABS: HCG Qualitative,Urine Negative (Negative)
[2020-04-01 10:10] LABS: Bilirubin,Urine NEG (Negative); Blood,Urine NEG (Negative); Color,Urine Yellow (Yellow); Mucus,Urine FEW /HPF; Protein,Urine <15 mg/dL mg/dL (Negative); Urobilinogen,Urine < 2.0 mg/dL (<2.0)
[2020-04-01] MEDS ORDERED: MORPHINE 2 MG/1 ML INJ IV ONE (10:11)
[2020-04-01] MEDS ORDERED: SODIUM CHLORIDE 0.9% 1000 ML 1,000 ML IV ONE (10:11)
[2020-04-01] MEDS ORDERED: ONDANSETRON 4 MG/2 ML INJ IV ONE (10:11)
--- NOTE | 2020-04-01 10:20 | Emergency Department Report ---
ED Abdominal Pain HPI - General Chief Complaint: Abdominal Pain Stated Complaint: RIGHT SIDE PAIN Time Seen by Provider: 04/01/20 09:59 Source: patient Mode of arrival: Ambulatory Limitations: No Limitations - History of Present Illness Initial Comments: 24-year-old -Omani female presents to the emergency room for abrupt onset of right side abdominal pain since 4 AM. Patient states that it is sharp pain that worse with movement or walking. She reports is better with resting and standstill. Patient reports she is taken nothing for the pain. Patient denies any nausea vomiting no dysuria no hematuria does admit to mild vaginal spotting. Patient reports her last menstrual period was 03/25/2020. She is 4 para 2 with 2 abortions. Patient denies any past medical history currently takes no medications on a daily basis and reports ibuprofen makes her stomach burn. MD Complaint: abdominal pain -: This morning Time: 04:00 Location: RLQ Radiation: none Migration to: no migration Severity scale (0 -10): 9 (With movement) Improves With: rest Worsens With: movement Associated Symptoms: denies other symptoms - Related Data Previous Rx's Medication Instructions Recorded Last Taken Type Amoxicillin [Trimox CAP] 500 mg PO Q8H #30 capsule 08/07/19 Unknown Rx Acetaminophen/Codeine [Tylenol 1 tab PO Q4HR PRN #16 tablet 08/12/19 Unknown Rx /Codeine # 3 tab] Amoxicillin/Potassium Clav 1 each PO BID #20 tablet 02/02/20 Unknown Rx [Augmentin 875-125 Tablet] predniSONE [Deltasone] 20 mg PO QDAY #5 tab 02/02/20 Unknown Rx traMADoL [Ultram] 50 mg PO Q6HR PRN #10 tablet 02/02/20 Unknown Rx Allergies Allergy/AdvReac Type Severity Reaction Status Date / Time No Known Allergies Allergy Verified 02/06/19 09:12 ED Review of Systems ROS: Stated complaint: RIGHT SIDE PAIN Other details as noted in HPI ED Past Medical Hx - Past Medical History Hx Hypertension: No Hx Diabetes: No Hx Deep Vein Thrombosis: No Hx Renal Disease: No Hx Sickle Cell Disease: No Hx Seizures: No Hx Asthma: No Hx HIV: No Additional medical history: scoliosis. 3 cysts on right arm, Cyst on ovaries, Miscarriage - Surgical History Additional Surgical History: x 2 - Social History Smoking Status: Current Every Day Smoker - Medications Home Medications: Home Medications Medication Instructions Recorded Confirmed Last Taken Type Amoxicillin [Trimox CAP] 500 mg PO Q8H #30 capsule 08/07/19 Unknown Rx Acetaminophen/Codeine [Tylenol 1 tab PO Q4HR PRN #16 tablet 08/12/19 Unknown Rx /Codeine # 3 tab] Amoxicillin/Potassium Clav 1 each PO BID #20 tablet 02/02/20 Unknown Rx [Augmentin 875-125 Tablet] predniSONE [Deltasone] 20 mg PO QDAY #5 tab 02/02/20 Unknown Rx traMADoL [Ultram] 50 mg PO Q6HR PRN #10 tablet 02/02/20 Unknown Rx ED Physical Exam - General Limitations: No Limitations General appearance: alert, in no apparent distress - Head Head exam: Present: atraumatic, normocephalic - Eye Eye exam: Present: normal appearance - ENT ENT exam: Present: mucous membranes moist - Respiratory Respiratory exam: Present: normal lung sounds bilaterally. Absent: respiratory distress - Cardiovascular Cardiovascular Exam: Present: regular rate, normal rhythm. Absent: systolic murmur, diastolic murmur, rubs, gallop - GI/Abdominal GI/Abdominal exam: Present: soft, tenderness, guarding (Right lower quadrant), normal bowel sounds, other (Positive psoas). Absent: distended - Expanded GI/Abdominal Exam Expanded GI/Abdominal exam: Present: psoas sign, obturator sign ED Course Vital Signs 04/01/20 08:59 Temperature 98.5 F Pulse Rate 86 Respiratory 18 Rate Blood Pressure 122/74 O2 Sat by Pulse 100 Oximetry ED Medical Decision Making - Lab Data Result diagrams: 04/01/20 09:06 04/01/20 09:06 Laboratory Tests 04/01/20 04/01/20 04/01/20 09:06 09:06 09:51 WBC 5.6 RBC 4.88 Hgb 11.9 Hct 36.8 MCV 75 L MCH 24 L MCHC 32 RDW 15.9 H Plt Count 291 Lymph % (Auto) 34.1 [place] % (Auto) 9.7 H Eos % (Auto) 1.5 Baso % (Auto) 0.4 Lymph # 1.9 [place] # 0.5 Eos # 0.1 Baso # 0.0 Seg Neutrophils % 54.3 Seg Neutrophils # 3.0 Sodium 136 L Potassium 3.6 Chloride 97.7 L Carbon Dioxide 27 Anion Gap 15 BUN 9 Creatinine 0.7 Estimated GFR > 60 BUN/Creatinine Ratio 13 Glucose 76 Calcium 9.5 Total Bilirubin 0.20 AST 19 ALT 13 Alkaline Phosphatase 83 Total Protein 7.9 Albumin 4.4 Albumin/Globulin Ratio 1.3 Urine Color Yellow Urine Turbidity Hazy Urine pH 5.0 Ur Specific [place] 1.018 Urine Protein <15 mg/dl Urine Glucose (UA) Neg Urine Ketones Neg Urine Blood Neg Urine Nitrite Neg Ur Reducing Substances Not Reportable Urine Bilirubin Neg Urine Ictotest Not Reportable Urine Urobilinogen < 2.0 Ur Leukocyte Esterase Tr Urine WBC (Auto) 1.0 Urine RBC (Auto) 1.0 U Epithel Cells (Auto) 8.0 Urine Mucus Few Urine HCG, Qual Negative - Radiology Data Radiology results: report reviewed Patient: CARLEE NAVA MR#: [id number] : 1995 Acct:[id number] Age/Sex: 24 / F ADM Date: 04/01/20 Loc: ED Attending Dr: Ordering Physician: ERASMO BENÍTEZ Date of Service: 04/01/20 Procedure(s): CT abdomen pelvis w con Accession Number(s): [id number] cc: ERASMO BENÍTEZ CT ABDOMEN AND PELVIS WITH CONTRAST HISTORY: Right lower quadrant abdominal pain. COMPARISON: None. TECHNIQUE: Routine abdominal and pelvic CT exam performed following intravenous contrast administration. The patient received 100 mL of IV Omnipaque 300. All CT scans at this location are performed using CT dose reduction for ALARA by means of automated exposure control. FINDINGS: CT ABDOMEN: Lung Bases: No significant abnormality. Liver: No significant abnormality. Biliary: No significant abnormality. Spleen: No significant abnormality. Unenlarged. Pancreas: No significant abnormality. Adrenals: No significant abnormality. Kidneys: No significant abnormality. Lymphatics: No lymphadenopathy. Vasculature: No significant abnormality. Bowel/Peritoneum: No significant abnormality. No free air. No free fluid. Normal appendix. CT PELVIC: : Small amount of free fluid noted. No acute findings. Lymphatics: No lymphadenopathy. Osseous Structures: No aggressive appearing osseous lesions. Additional Findings: None IMPRESSION: 1. No acute findings. The appendix appears normal. 2. Small amount of free fluid in the pelvis. Signer Name: Stanton Naranjo MD Signed: 04/01/2020 11:03 AM Workstation Name: [id number] Transcribed By: CHAU Dictated By: Stanton Naranjo MD Electronically Authenticated By: Stanton Naranjo MD Signed Date/Time: 04/01/20 1103 DD/ 1101 TD/TT: - Medical Decision Making 24-year-old -Omani female presents to the emergency room for abrupt onset of right side abdominal pain since 4 AM. Patient states that it is sharp pain that worse with movement or walking. She reports is better with resting and standstill. Patient reports she is taken nothing for the pain. Patient denies any nausea vomiting no dysuria no hematuria does admit to mild vaginal spotting. Patient reports her last menstrual period was 03/25/2020. She is 4 para 2 with 2 abortions. Patient denies any past medical history currently takes no medications on a daily basis and reports ibuprofen makes her stomach burn. CBC CMP urinalysis urine test, IV, morphine, Zofran and CT with contrast abdominal and pelvis. Critical care attestation.: If time is entered above; I have spent that time in minutes in the direct care of this critically ill patient, excluding procedure time. ED Disposition Clinical Impression: Acute abdominal pain Disposition: DC-01 TO HOME OR SELFCARE Is pt being admited?: No Does the pt Need Aspirin: No Condition: Stable Instructions: Abdominal Pain (ED) Additional Instructions: Labs are stable urinalysis negative CT is negative for any acute abnormalities. I recommend taking [id number] Tylenol or ibuprofen and to follow-up with a primary care provider. Referrals: PRIMARY MD WILSON [Primary Care Provider] - 3-5 Days [facility] [Provider Group] - 3-5 Days Forms: Work/School Release Form(ED)
--- NOTE | 2020-04-01 11:07 | Cat Scan Report ---
CT ABDOMEN AND PELVIS WITH CONTRAST HISTORY: Right lower quadrant abdominal pain. COMPARISON: None. TECHNIQUE: Routine abdominal and pelvic CT exam performed following intravenous contrast administrat ion. The patient received 100 mL of IV Omnipaque 300. All CT scans at this location are performed usi ng CT dose reduction for ALARA by means of automated exposure control. FINDINGS: CT ABDOMEN: Lung Bases: No significant abnormality. Liver: No significant abnormality. Biliary: No significant abnormality. Spleen: No significant abnormality. Unenlarged. Pancreas: No significant abnormality. Adrenals: No significant abnormality. Kidneys: No significant abnormality. Lymphatics: No lymphadenopathy. Vasculature: No significant abnormality. Bowel/Peritoneum: No significant abnormality. No free air. No free fluid. Normal appendix. CT PELVIC: : Small amount of free fluid noted. No acute findings. Lymphatics: No lymphadenopathy. Osseous Structures: No aggressive appearing osseous lesions. Additional Findings: None IMPRESSION: 1. No acute findings. The appendix appears normal. 2. Small amount of free fluid in the pelvis. Signer Name: Stanton Naranjo MD Signed: 04/01/2020 11:03 AM Workstation Name: [id number]
== END 2020-04-01 11:42 | disposition home or self-care (01) ==
LOC: ED 08:54
DX: R10.31 Right lower quadrant pain (principal); F17.200 Nicotine dependence, unspecified, uncomplicated; Z79.2 Long term (current) use of antibiotics; Z79.899 Other long term (current) drug therapy
CPT/HCPCS: 36415; 74177; 80053; 81001; 81025; 85025; 96374; 96375; 96376; 99284; J2270; J2405; J7030; Q9967

== ENCOUNTER 2020-08-12 18:19 | Emergency (ER) | payer SELFPAY ==
[2020-08-12 19:27] VITALS: BP 134/82
--- NOTE | 2020-08-12 19:33 | Emergency Department Report ---
Chief Complaint: Earache Stated Complaint: LEFT EAR PAIN Time Seen by Provider: 08/12/20 19:32 - HPI History of Present Illness: Patient is a 25-year-old female presents emergency room complaints of left ear pain for 1 month. She states that she believes it is referred pain from her dental pain. She states that she has tried to follow-up with a dentist but reports that the place that she called is not taking new patients. She has been seen in this emergency department multiple times for similar symptoms. She denies any ear drainage, difficulty hearing, facial swelling, difficulty swallowing, difficulty breathing, fever, nausea, vomiting, diarrhea. No past me dical history. She has an adverse reaction to ibuprofen. Last menstrual cycle 07/29/2020. Vitals are stable On exam: Non toxic appearing, no acute distress atraumatic, normocephalic normal appearance of the eyes, EOMI, no periorbital edema or ecchymosis moist mucus membranes, normal oropharynx, multiple dental caries, there are impacted wisdom teeth present, no edema or induration of the gumline, no facial edema, uvula is midline, no uvular edema or deviation, no submandibular swelling, patient is tolerating secretions without difficulty, no trismus, no muffled voice No respiratory distress, no accessory muscle use A&O x4, no focal neuro deficit skin is warm, dry, intact Patient is presenting for dental pain which is referring pain to her ear No signs of infected dental caries, dental abscess, facial cellulitis, Ludwigs' No signs of otitis media, otitis externa, mastoiditis Discussed supportive care and symptomatic treatment with patient Discussed the importance of dental follow-up with patient Discussed return precautions Medical screening examination performed there is no threat to life or limb at this time - Exam Vital Signs: Vital Signs 08/12/20 19:24 Temperature 98.2 F Pulse Rate 81 Respiratory 16 Rate Blood Pressure 134/82 O2 Sat by Pulse 100 Oximetry MSE screening note: Focused history and physical exam performed. Due to findings the following was ordered: ED Disposition for MSE Clinical Impression: Dentalgia, Dental caries Otalgia Qualifiers: Laterality: left Qualified Code(s): H92.02 - Otalgia, left ear Disposition: Z-07 MED SCREENING EXAM-LEFT Is pt being admited?: No Does the pt Need Aspirin: No Condition: Stable Additional Instructions: May take Tylenol as needed for discomfort. May use Orajel [id number]. Gargle with warm salt water. Follow-up with a dentist. It is very importantly follow-up. Return to emergency room for new or worsening symptoms. Referrals: [facility] [Outside] - 2-3 Days [facility] [Outside] - 2-3 Days Time of Disposition: 19:36 Print Language: WELSH
== END 2020-08-12 19:40 | disposition left against medical advice (07) ==
LOC: ED 18:19
DX: H92.02 Otalgia, left ear (principal); Z53.21 Procedure and treatment not carried out due to patient leaving prior to being seen by health care provider